=== PATIENT | female | born 1935 | race Caucasian/White ===

== ENCOUNTER 2016-06-30 12:47 | Emergency (ER) | payer OTHER ==
[~2016-06-30] VITALS: Ht 169.6 cm; Wt 56.7 kg
[~2016-06-30 12:47] MED LIST: ASPIRIN EC81 M1 PO; ATENOLOL25 M1 PO; FLUTICASONE PRO16 GM NASB; LEVOTHYROXINE88 MCG PO; MULTI-DAY VITA1 EACH PO; OMEPRAZOLE20 M2 PO; OMEPRAZOLE40 M1 PO; PROBIOTIC1 EACH PO; TYLENOL EXTRA500 M2 PO; VITAMIN D31000 UNI1 PO; VITAMIN D32000 UNI1 PO
--- NOTE | 2016-06-30 13:21 | ED GENERAL ADULT ---
History of Present Illness General Chief Complaint: Low Back Pain/Injury Stated Complaint: LOWER BACK PAIN, S/P FALL 06/26 Source: patient, family Exam Limitations: no limitations Vital Signs & Intake/Output Vital Signs & Intake/Output Vital Signs Date Time Temp Pulse Resp B/P B/P Pulse O2 O2 Flow FiO2 Mean Ox Delivery Rate 06/30 1630 98.0 69 15 135/74 100 Room Air 06/30 1502 97.4 65 18 146/72 98 Room Air 06/30 1253 97.8 71 18 153/89 100 Room Air Room Air 06/30/16 2 PM 81-year-old female presents to the emergency department for low back pain and pelvic pain. The patient states that she fell on June 26. She said that she was opening a door and her hand slipped and she fell backwards. She was seen and evaluated in urgent care center. She had x-rays which apparently showed a compression fracture. Today she called and said she was having ongoing pain and she was told to come to the emergency department for a CAT scan. She has a past medical history of compression fractures. She also has a past medical history of bilateral hip replacements. She denies any other injuries but she did say that she injured her left thumb. She has no pain in the left thumb at this time. She denies head injury or neck pain. She does have a past medical history of arthritis. She says that she has been prescribed Flexeril, prednisone and Tylenol. Currently she only has minimal pain. No abdominal pain , fever or other complaints. She does have a follow-up appointment with the orthopedist. (MITESH BARRIOS DO) Allergies Coded Allergies: oxycodone (INTENSE SCRATCHING 06/13/15) tramadol (From ULTRAM) (INTENSE SCRATCHING 06/13/15) Reconcile Medications Acetaminophen (Tylenol Extra Strength) 500 MG TABLET 1 TAB PO BID PAIN ( Reported) Atenolol 25 MG TABLET 1 TAB PO DAILY BP (Reported) Cholecalciferol (Vitamin D3) (Vitamin D3) 2,000 UNIT TABLET 1 TAB PO DAILY SUPPLEMENT (Reported) Fluticasone Propionate 16 GM SPRAY.SUSP 2 SPRAY NASB PRN ALLERGIES (Reported) Levothyroxine Sodium 88 MCG TABLET 1 TAB PO DAILY THYROID (Reported) Multivitamin (Multi-Day Vitamins) 1 EACH TABLET 1 TAB PO DAILY SUPPLEMENT ( Reported) Prednisone 20 MG TABLET 1 TAB PO DAILY BACK PAIN Triage Note: TRIAGE: 81 Y/O FEMALE PRESENTS C/O 10/03 LOWER BACK PAIN AND LOWER RIGHT BUTTOCK PAIN S/P FALL ON 06/26. PAIN RADIATES TO RIGHT POSTERIOR KNEE REGION. PATIETN REPORTS DIFFICULTY AMBULATING. Triage Nurses Notes Reviewed? yes HPI: The patient is ambulating without pain in the ED. She has no lower extremity weakness or numbness. No bowel or bladder dysfunction. The injury occurred several days ago. I did page the orthopedist. She will call Dr. Jhaveri's office tomorrow or return to the emergency department if worse. She was given prednisone 20 mg daily for 4 days, and will then resume her taper, continue that cyclobenzaprine and toes needed. Past History Travel History Traveled to [place] past 21 day No Medical History Any Pertinent Medical History? see below for history Neurological: NONE EENT: SEASONAL ALLERGIES Cardiovascular: hypertension Respiratory: NONE Gastrointestinal: NONE Hepatic: NONE Renal: NONE Musculoskeletal: OSTEOARTHRITIS Psychiatric: NONE Endocrine: THYROID DISORDER Blood Disorders: NONE Cancer(s): NONE NETWORK DEVELOPER/Reproductive: NONE History of MRSA: No History of VRE: No History of CDIFF: No Pneumonia Vaccine: 12/04/07 Surgical History Surgical History: non-contributory, TONSILECTOMY L HIP REPLACEMENT 1999 R HIP REPLACEMENT 2004 L WRIST FX REPAIR 2009 Psychosocial History Who do you live with Patient/Self Services at Home None What is your primary language Togolese Tobacco Use: Never used ETOH Use: occasional use Illicit Drug Use: denies illicit drug use Family History Family History, If Any: Relation not specified for: *No pertinent family history Hx Contributory? No Review of Systems Review of Systems Constitutional: Denies: fever. EENTM: Reports: no symptoms. Respiratory: Denies: short of breath. Cardiovascular: Denies: chest pain. GI: Denies: abdominal pain. Genitourinary: Reports: no symptoms. Musculoskeletal: Reports: back pain. Skin: Denies: rash. Neurological/Psychological: Denies: weakness. Hematologic/Endocrine: Denies: bruising, bleeding. Physical Exam Physical Exam General Appearance: well developed/nourished, alert, awake, anxious, mild distress Head: atraumatic, normal appearance Eyes: Bilateral: normal appearance, PERRL, EOMI. Ears, Nose, Throat: normal pharynx, normal ENT inspection, hearing grossly normal Neck: normal inspection, supple, full range of motion Respiratory: normal breath sounds, chest non-tender, no respiratory distress Cardiovascular: regular rate/rhythm Peripheral Pulses: 4+ radial (R) Gastrointestinal: soft, non-tender Back: normal range of motion, no vertebral tenderness, she points that the pain is at L5 Extremities: normal inspection, normal range of motion, no edema Neurologic/Psych: no motor/sensory deficits, awake, alert, oriented x 3 Skin: intact, normal color, warm/dry Core Measures ACS in differential dx? No CVA/TIA Diagnosis: No Severe Sepsis Present: No Septic Shock Present: No Progress Differential Diagnoses I considered the following diagnoses in my evaluation of the patient: [ Compression fracture, disc herniation, cauda equina syndrome, epidural hematoma pelvic fracture,] Plan of Care: Orders Procedure Date/time Status CT PELVIS WO IV CONTRAST 06/[address] LUMB SPINE WO IV CONTRAST 06/30 1342 Active Initial ED EKG: none Departure Departure Disposition: HOME OR SELF CARE Condition: Stable Clinical Impression Primary Impression: Lumbar compression fracture Referrals: KENNEDY RIBEIRO,SEFERINO Slaughter (PCP/Family) Departure Forms: Customer Survey General Discharge Information Prescriptions: Current Visit Scripts Prednisone 1 TAB PO DAILY #[address] scan results are shown below SERVICE DATE: 06/30/16 EXAM TYPE: CAT - CT LUMB SPINE WO IV CONTRAST EXAMINATION: CT LUMBAR SPINE WITHOUT CONTRAST CLINICAL INFORMATION: Fall. Pain. Evaluate for fracture. COMPARISON: Previous CT of the chest, abdomen and pelvis October 2015. TECHNIQUE: Helical non-contrast CT images were obtained through the lumbar spine and 1.25 and 2.5 mm axial reconstructions were reviewed along with sagittal and coronal MPRs. DLP: 339 mGy-cm FINDINGS: There is mild retrolisthesis of L2 with respect to L3. This is similar to previous exam. There is mild curvature of the proximal lumbar spine to the right. Bone alignment is otherwise normal. There is an old severe-appearing L1 vertebral body compression fracture that is unchanged. There is an acute-appearing severe L5 vertebral body compression fracture. There is mild posterior extension of the superior endplate into the spinal canal measuring approximately 4 mm. No other fracture is seen. At L1-L2, there is no disc herniation, protrusion or bulge. There is mild posterior extension of bone/superior endplate of L1 into the spinal canal measuring 3 mm. This is unchanged. At L2-L3, there is degenerative disc disease with disc space narrowing and vacuum change. There is mild diffuse bulge. No disc herniation is seen. At L3-L4, there is no disc herniation, protrusion or bulge. At L4-L5, there is mild diffuse disc bulge. There is mild secondary spinal stenosis due to disc, short pedicles, facet arthritis and ligamentum flavum thickening. At L5-S1, there is no disc herniation, protrusion or bulge. There is again an acute severe L5 compression fracture. There is mild retropulsion of the superior endplate of the L5 vertebral body into the spinal canal measuring 4 mm. There is mild spinal stenosis at L5-S1 due to short pedicles and facet arthritis and ligamentum flavum thickening. There is evidence of atherosclerotic disease. The abdominal aorta is normal in caliber. The gallbladder may be distended. . IMPRESSION: Acute severe L5 vertebral body compression fracture. There is 4 mm retropulsion of bone into the spinal canal. Stable severe L1 compression fracture. DICTATED BY: WILEY MANRIQUEZ MD DATE/TIME DICTATED:06/30/161520 RAG COLLECTOR:CHUCKY DATE/TIME TRANSCRIBED:06/30/161520 CONFIDENTIAL, DO NOT COPY WITHOUT APPROPRIATE AUTHORIZATION. <Electronically signed in Other Vendor System> SIGNED BY: WILEY MANRIQUEZ MD [id number] Critical Care Note Critical Care Note Critical Care Time: non-applicable
--- NOTE | 2016-06-30 15:40 | CT SCAN REPORT ---
EXAMINATION: CT LUMBAR SPINE WITHOUT CONTRAST CLINICAL INFORMATION: Fall. Pain. Evaluate for fracture. COMPARISON: Previous CT of the chest, abdomen and pelvis October 2015. TECHNIQUE: Helical non-contrast CT images were obtained through the lumbar spine and 1.25 and 2.5 mm axial reconstructions were reviewed along with sagittal and coronal MPRs. DLP: 339 mGy-cm FINDINGS: There is mild retrolisthesis of L2 with respect to L3. This is similar to previous exam. There is mild curvature of the proximal lumbar spine to the right. Bone alignment is otherwise normal. There is an old severe-appearing L1 vertebral body compression fracture that is unchanged. There is an acute-appearing severe L5 vertebral body compression fracture. There is mild posterior extension of the superior endplate into the spinal canal measuring approximately 4 mm. No other fracture is seen. At L1-L2, there is no disc herniation, protrusion or bulge. There is mild posterior extension of bone/superior endplate of L1 into the spinal canal measuring 3 mm. This is unchanged. At L2-L3, there is degenerative disc disease with disc space narrowing and vacuum change. There is mild diffuse bulge. No disc herniation is seen. At L3-L4, there is no disc herniation, protrusion or bulge. At L4-L5, there is mild diffuse disc bulge. There is mild secondary spinal stenosis due to disc, short pedicles, facet arthritis and ligamentum flavum thickening. At L5-S1, there is no disc herniation, protrusion or bulge. There is again an acute severe L5 compression fracture. There is mild retropulsion of the superior endplate of the L5 vertebral body into the spinal canal measuring 4 mm. There is mild spinal stenosis at L5-S1 due to short pedicles and facet arthritis and ligamentum flavum thickening. There is evidence of atherosclerotic disease. The abdominal aorta is normal in caliber. The gallbladder may be distended. . IMPRESSION: Acute severe L5 vertebral body compression fracture. There is 4 mm retropulsion of bone into the spinal canal. Stable severe L1 compression fracture.
--- NOTE | 2016-06-30 15:58 | CT SCAN REPORT ---
EXAMINATION: CT PELVIS WITHOUT CONTRAST CLINICAL INFORMATION: Pain post fall. Evaluate for fracture. COMPARISON: CT of the pelvis October 2015. TECHNIQUE: Helical scanning was performed with submillimeter collimation through the pelvis. Sagittal and coronal multiplanar 2-D reconstructions were obtained. DLP: 486 mGy-cm FINDINGS: The bones are osteopenic. Acute severe L5 vertebral body compression fracture is noted. No acute pelvic fracture is seen. There are old pubic ramus fractures. There are bilateral hip replacements. No fracture, dislocation or evidence of loosening is seen. There is stool in the colon. Evaluation of the soft tissues in the pelvis is limited due to artifact from hip replacements. Gallbladder may be distended. Soft tissues outside the pelvis are unremarkable. IMPRESSION: Osteopenia. No acute pelvic fracture is seen.
[2016-06-30] MEDS ORDERED: PREDNISONE20 M1 PO (16:20)
[2016-06-30 16:30] VITALS: BP 135/74
== END 2016-06-30 16:30 ==
LOC: ERH 12:47
DX: S32.059A Unspecified fracture of fifth lumbar vertebra, initial encounter for closed fracture (principal); S32.019A Unspecified fracture of first lumbar vertebra, initial encounter for closed fracture; W19.XXXA Unspecified fall, initial encounter; Y92.9 Unspecified place or not applicable; Y93.9 Activity, unspecified

== ENCOUNTER 2017-10-10 05:08 | Inpatient (IN) | payer OTHER ==
[~2017-10-10] VITALS: Ht 167.6 cm; Wt 57.2 kg
[~2017-10-10 05:08] MED LIST changes: +MULTI-DAY PLUS1 EAC1 PO; -MULTI-DAY VITA1 EACH PO; +NORCO 5-325 TA1 EACH PO; +PREDNISONE20 M1 PO; +TYLENOL WITH C1 EACH PO; +VICODIN 5-3001 EACH PO
[2017-10-10 06:00] LABS: ABSOLUTE BASOPHIL COUNT 0 /CUMM (0.0-0.2); ABSOLUTE EOSINOPHIL COUNT 0 /CUMM (0.0-0.7); ABSOLUTE GRANULOCYTE CT 9.5 /CUMM (1.4-6.5); ABSOLUTE MONOCYTE COUNT 0.8 /CUMM (0.10-0.60); BASOPHIL % 0.1 % (0.0-2.0); EOSINOPHIL % 0.3 % (0-5); HEMATOCRIT 42.6 % (37-47); MEAN CORPUSCULAR HGB CONC 33.6 G/DL (33.0-37.0); MEAN CORPUSCULAR VOLUME 95.2 FL (81.0-99.0); MEAN PLATELET VOLUME 8.4 FL (7.4-10.4); PLATELET COUNT 219 /CUMM (130-400); RED BLOOD CELL CT 4.47 /CUMM (4.20-5.40); WHITE BLOOD CELL COUNT 11.3 /CUMM (4.8-10.8)
[2017-10-10 06:01] LABS: GRANULOCYTE % 84.3 % (42.2-75.2)
--- NOTE | 2017-10-10 06:19 | ED GI/GU/ABDOMINAL COMPLAINT ---
History of Present Illness General Chief Complaint: Fall Stated Complaint: BIBA, FALL Source: patient, family, old records, EMS Exam Limitations: no limitations Vital Signs & Intake/Output Vital Signs & Intake/Output Vital Signs Date Time Temp Pulse Resp B/P B/P Pulse O2 O2 Flow FiO2 Mean Ox Delivery Rate 10/10 0723 97.0 83 20 111/60 98 Room Air 10/10 0511 97.9 78 20 117/60 99 Room Air Allergies Coded Allergies: oxycodone (INTENSE SCRATCHING 11/13/16) tramadol (From ULTRAM) (INTENSE SCRATCHING 11/13/16) Reconcile Medications Acetaminophen (Tylenol Extra Strength) 500 MG TABLET 1 TAB PO TID PAIN ( Reported) Atenolol 25 MG TABLET 1 TAB PO DAILY BP (Reported) Cholecalciferol (Vitamin D3) (Vitamin D3) 2,000 UNIT TABLET 1 TAB PO DAILY SUPPLEMENT (Reported) Fluticasone Propionate 16 GM SPRAY.SUSP 2 SPRAY NASB PRN ALLERGIES (Reported) Hydrocodone/Acetaminophen (Vicodin 5-300 MG Tablet) 5 MG-300 MG TABLET 2 TAB PO BID pain Hydrocodone/Acetaminophen ([place] 5-325 Tablet) 5 MG-325 MG TABLET 1 TAB PO Q4- 6 PRN PRN pain Levothyroxine Sodium 88 MCG TABLET 1 TAB PO DAILY THYROID (Reported) Multivitamin-Min/Iron/FA/Vit K (Multi-Day Plus Minerals Tablet) 18 MG IRON-400 MCG-25 MCG TABLET 1 TAB PO DAILY SUPPLEMENT (Reported) Prednisone 20 MG TABLET 2 TAB PO DAILY pain Tylenol With Codeine (Tylenol With Codeine #3 Tablet) 300 MG-30 MG TABLET 1 TAB PO TID PAIN (Reported) Triage Note: PT BIBA FROM HOME. PT STATES SHE HAS HX COLITIS AND HAS HAD DIARRHEA X1 WEEK "FEELS LIKE COLITIS", PT STATES SHE SAW DR ROQUE YESTERDAY AM AND WAS FEELING BETTER, THEN VOMITED LAST NIGHT AND BEGAN TO FEEL WEAK. PT STATES SHE WAS AMBUALTING TO BATHROOM EDGE INKER UPPERS AND WAS LOWERED TO GROUND BY FAMILY, DENIES HEADSTRIKE. DENIES ABD PAIN Triage Nurses Notes Reviewed? yes LMP (ages 10-50): post menopausal ? n Is pt currently ? No Onset: Last week Duration: day(s):, constant, continues in ED, getting worse Timing: recent history Quality/Severity: aching, mild Location: generalized abdomen Radiation: no radiation Activities at Onset: rest Prior Abdominal Problems: similar symptoms Past Sexual History: Unobtainable at this time Modifying Factors: Worsens With: eating. Associated Symptoms: abdominal pain, diarrhea, loss of appetite, nausea/vomiting HPI: 1 week prior to admission patient complains of abdominal cramps followed by frequent loose watery stools anorexia and fatigue. Prior to admission she had several episodes of frequent loose watery stools became weak and almost collapsed to the floor. She denies fever chills vomiting chest pain cough shortness of breath headache dysuria rash bleeding. Past History Travel History Traveled to [place] past 21 day No Medical History Any Pertinent Medical History? 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 No Review of Systems Review of Systems Constitutional: Reports: see HPI, malaise, weakness. EENTM: Reports: no symptoms. Respiratory: Reports: no symptoms. Cardiovascular: Reports: no symptoms. GI: Reports: see HPI, abdominal pain, diarrhea, nausea, vomiting. Genitourinary: Reports: no symptoms. Musculoskeletal: Reports: no symptoms. Skin: Reports: no symptoms. Neurological/Psychological: Reports: no symptoms. Hematologic/Endocrine: Reports: no symptoms. Immunologic/Allergic: Reports: no symptoms. All Other Systems: Reviewed and Negative Physical Exam Physical Exam General Appearance: well developed/nourished, alert, awake, anxious, moderate distress, thin Head: atraumatic, normal appearance Eyes: Bilateral: normal appearance, PERRL, EOMI, normal inspection. Ears, Nose, Throat, Mouth: hearing grossly normal, Dry mucous membranes Neck: normal inspection, supple, full range of motion, normal alignment Respiratory: normal breath sounds, chest non-tender, no respiratory distress, quiet respiration, lungs clear Cardiovascular: regular rate/rhythm, normal peripheral pulses, norml femoral pulses equa Peripheral Pulses: 4+ carotid (R), 4+ carotid (L) Gastrointestinal: soft, non-tender, no organomegaly, abnormal bowel sounds Back: normal inspection, normal range of motion Extremities: normal range of motion, no ligament instability Neurologic/Psych: no motor/sensory deficits, awake, alert, oriented x 3, normal gait Skin: intact, normal color, warm/dry Core Measures ACS in differential dx? No Sepsis Present: No Sepsis Focused Exam Completed? No Progress Differential Diagnosis: biliary colic, bowel obstruction, gastritis, inflamm bowel dis, pancreatitis Plan of Care: Orders Procedure Date/time Status Regular Diet 10/10 B Active Patient Data 10/10 0726 Active OXYGEN SETUP (GEN) 10/10 0725 Active Saline Lock 10/10 0725 Active Admit to inpatient 10/10 0725 Active Vital Signs 10/10 0725 Active Activity/Ambulation 10/10 0725 Active Code Status 10/10 0725 Active EKG 10/10 0724 Active LIPASE 10/10 0534 Complete COMPREHENSIVE METABOLIC PANEL 10/10 0534 Complete CBC WITHOUT DIFFERENTIAL 10/10 0534 Complete Laboratory Tests 10/10/17 0552: Anion Gap 10, Estimated GFR > 60, BUN/Creatinine Ratio 41.7 H, Glucose 127 H, Calcium 10.5 H, Total Bilirubin 0.9, AST 36, ALT 23, Alkaline Phosphatase 66, Total Protein 8.1, Albumin 4.4, Globulin 3.7, Albumin/Globulin Ratio 1.2, Lipase 175, CBC w Diff NO MAN DIFF REQ, RBC 4.47, MCV 95.2, MCH 32.0 H, MCHC 33.6, RDW 14.0, MPV 8.4, Gran % 84.3 H, Lymphocytes % 8.5 L, Monocytes % 6.8, Eosinophils % 0.3, Basophils % 0.1, Absolute Granulocytes 9.5 H, Absolute Lymphocytes 1.0 L, Absolute Monocytes 0.8 H, Absolute Eosinophils 0, Absolute Basophils 0 Diagnostic Imaging: Viewed by Me: CT Scan. Discussed w/RAD: CT Scan. Radiology Impression: No acute findings of the abdomen or pelvis. No inflammatory changes. Unchanged 0.4 cm right lower lobe pulmonary nodule suggesting benign etiology. Initial ED EKG: pending Departure Departure Disposition: STILL A PATIENT Condition: Stable Clinical Impression Primary Impression: Colitis Secondary Impressions: Dehydration Referrals: Richar RIBEIRO,Kaela Slaughter (PCP/Family) Departure Forms: Customer Survey General Discharge Information Admission Note Spoke With: Edy Rivas MD Documentation of Exam: Documentation of any treatments & extenuating circumstances including Concerns Regarding Discharge (functional status, medication knowledge or non-compliance, living conditions, etc.) that warrant an admission rather than observation: IV hydration medication adjustment GI evaluation physical therapy ensure safety continuing care discharge planning.
--- NOTE | 2017-10-10 07:00 | CT SCAN REPORT ---
EXAMINATION: CT ABDOMEN AND PELVIS WITH CONTRAST CLINICAL INFORMATION: History of colitis with frequent stooling. Weakness. COMPARISON: 06/13/[address] Lum[address] 06/30/2016 and 11/13/2016. TECHNIQUE: Multidetector volumetric imaging was performed of the abdomen and pelvis following IV administration of 95 mL of Optiray 320 intravenous contrast. Sagittal and coronal reformatted images were obtained on the technologist's workstation. DLP: 243 mGy-cm FINDINGS: LUNG BASES: Subsegmental atelectasis of the lung bases. 0.4 cm right lower lobe nodule, series 2 image 7. This is unchanged. LIVER, GALLBLADDER, AND BILIARY TREE: The liver is normal in size, shape, and attenuation. No focal hepatic lesion or biliary ductal dilatation is present. The gallbladder is unremarkable with no evidence of radiopaque gallstones, gallbladder wall thickening, or obvious pericholecystic inflammatory changes. PANCREAS: Unremarkable. SPLEEN: Unremarkable. ADRENAL GLANDS: Unremarkable. KIDNEYS AND URETERS: The kidneys are normal in size, shape, and attenuation. No hydronephrosis, hydroureter, or calculi seen. No perinephric stranding. Left upper pole renal cyst. BLADDER: Not well assessed due to artifact from hip arthroplasty hardware. GASTROINTESTINAL TRACT: The stomach is unremarkable. The small bowel is normal in caliber. There is no obstruction. Scattered fluid seen within the colon. No wall thickening or inflammation. No free air or free fluid. ABDOMINAL WALL: No significant hernia is appreciated. LYMPH NODES: Normal. VASCULAR: Normal caliber aorta. Mild atherosclerotic calcifications. PELVIC VISCERA: Not well evaluated due to artifact from hip arthroplasty hardware. OSSEOUS STRUCTURES: Bilateral total hip arthroplasties. Compression deformities of the L1 and L5 vertebral bodies. These are unchanged from the most recent prior lumbar spine CT. Vacuum disc phenomenon at the L2-L3 level. IMPRESSION: No acute findings of the abdomen or pelvis. No inflammatory changes. Unchanged 0.4 cm right lower lobe pulmonary nodule suggesting benign etiology.
[2017-10-10] MEDS ORDERED: TRAZODONE HCL50 M1 PO (07:57)
[2017-10-10] MEDS ORDERED: IMODIUM A-D2 M1 PO (07:58)
[2017-10-10] MEDS ORDERED: IPRATROPIUM BRO15 M1 NAS (08:01)
[2017-10-10] MEDS ORDERED: PEPTO BISMOL PO (08:02)
--- NOTE | 2017-10-10 09:11 | History & Physical ---
Sergio Paz 10/10/17 0911: General Information and HPI MD Statement: I have seen and personally examined TREVON PARRA and documented this H&P. The patient is a 82 year old F who presented with a patient stated chief complaint of [diarrhea,vomiting, abdominal pain]. Source of Information: patient, family Exam Limitations: no limitations History of Present Illness: This is a 82-year-old female with past medical history of hypertension, insomnia , hypothyroidism, depression came in with chief complain of nausea, multiple episodes of loose watery stools, vomiting and crampy abdominal pain since last 3 -4 days, however getting worse the night prior to admission. Apparently the patient had a couple of loose bowel movements in the last few days, the first one being one week prior to presentation after dinner after she had eaten chicken pie and a [place] when she had one episode of crampy abdominal pain and loose bowel movement which was self-limiting. Subsequently she was fine for the following 2 days, she had another loose bowel movement on the third day, followed by one more loose bowel movement and therefore she decided to see GI Dr. Huerta. She saw Dr. Huerta on the morning of the day prior to today's presentation, was feeling better when she again started to have crampy abdominal pain along with loose watery bowel movements around 2:30 AM. She said that it was pouring diarrhea and she kept sitting in the bathroom for a while, at least had 3-4 loose watery bowel movements, felt very weak and tired and because of weakness she went down as per her daughter's request so that she would not have a fall. She had mild crampy abdominal pain associated with the episodes. She also tried some orange juice in between and thrrew up all of it. She has had 2-3 episodes of vomiting, one episode even after coming to the emergency department. She does not recollect eating outside in last few days, no travel history, no recent antibiotic use, no sick contacts or anybody else sick with similar symptoms, no blood in the stools or mucus. She has had episodes of colitis in the past however nothing in the recent past. She notes that she has been eating some puddings which she had refrigerated from before. After recent few episodes she was mostly eating applesauce, some yogurt, oatmeal and was carefully watching what she eats. Allergies/Medications Allergies: Coded Allergies: oxycodone (INTENSE SCRATCHING 11/13/16) tramadol (From ULTRAM) (INTENSE SCRATCHING 11/13/16) Home Med list Atenolol 25 MG TABLET 1 TAB PO DAILY BP (Reported) Bismuth Subsalicylate (Pepto-Bismol) 262 MG TABLET 1 TAB PO DAILY PRN GI ( Reported) Cholecalciferol (Vitamin D3) (Vitamin D3) 2,000 UNIT TABLET 1 TAB PO DAILY SUPPLEMENT (Reported) Ipratropium [place] 42 MCG (0.06 %) SPRAY 2 SPRAY DARIO BID ALLERGIES (Reported ) Levothyroxine Sodium 88 MCG TABLET 1 TAB PO DAILY THYROID (Reported) Loperamide HCl (Imodium A-D) 2 MG TABLET 1 TAB PO DAILY PRN GI (Reported) Multivitamin-Min/Iron/FA/Vit K (Multi-Day Plus Minerals Tablet) 18 MG IRON-400 MCG-25 MCG TABLET 1 TAB PO DAILY SUPPLEMENT (Reported) Trazodone HCl 50 MG TABLET 1 TAB PO QPM SLEEP (Reported) Compliance With Home Meds: GOOD Past History Travel History Traveled to [place] past 21 day No Medical History Neurological: NONE EENT: SEASONAL ALLERGIES Cardiovascular: hypertension Respiratory: NONE Gastrointestinal: NONE Hepatic: NONE Renal: NONE Musculoskeletal: OSTEOARTHRITIS L WRIST FX/SX/HDWE Psychiatric: NONE Endocrine: THYROID DISORDER Blood Disorders: NONE Cancer(s): NONE [employer]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 Ambulation: independent IADLs Independent: shopping, housework, finances, food prep, telephone, transportation , medication admin. Sexual History Past Sexual History Unobtainable at this time Review of Systems Review of Systems Constitutional: Reports: malaise, weakness. Denies: chills, diaphoresis, fever. EENTM: Denies: no symptoms. Cardiovascular: Denies: no symptoms. Respiratory: Denies: no symptoms. GI: Reports: abdominal pain, diarrhea, nausea, changes in stool. Denies: bloating, constipation, distention, bowel incontinence, melena. Genitourinary: Reports: no symptoms. Musculoskeletal: Reports: no symptoms. Skin: Reports: no symptoms. Exam & Diagnostic Data Last 24 Hrs of Vital Signs/I&O Vital Signs Date Time Temp Pulse Resp B/P B/P Pulse O2 O2 Flow FiO2 Mean Ox Delivery Rate 10/10 09 97.4 70 20 115/53 96 Room Air 10/10 0723 97.0 83 20 111/60 98 Room Air 10/10 0511 97.9 78 20 117/60 99 Room Air Intake & Output 10/10 1600 10/10 0800 10/10 0000 Intake Total Output Total Balance Patient 55.338 kg kg Weight Weight Reported by Patient Measurement Method Physical Exam General Appearance Alert, Oriented X3, Cooperative, Mild Distress Skin No Rashes, No Breakdown Skin Temp/Moisture Exam: Warm/Dry Sepsis Skin Exam (color): Normal for Ethnicity HEENT Atraumatic, PERRLA, EOMI Neck Supple, No JVD Lymphatic no lymphadenopathy Cardiovascular Regular Rate, Normal S1, Normal S2, No Murmurs Lungs Clear to Auscultation, Normal Air Movement Abdomen Normal Bowel Sounds, Soft, No Tenderness Extremities No Clubbing, No Cyanosis, No Edema, Normal Pulses Last 24 Hrs of Labs/Anant: Laboratory Tests 10/10/17 0552: Anion Gap 10, Estimated GFR > 60, BUN/Creatinine Ratio 41.7 H, Glucose 127 H, Calcium 10.5 H, Magnesium 2.0, Total Bilirubin 0.9, AST 36, ALT 23, Alkaline Phosphatase 66, Total Protein 8.1, Albumin 4.4, Globulin 3.7, Albumin/Globulin Ratio 1.2, Lipase 175, Free T4 Pending, TSH &T3 &Free T4 Intrp 6.920 H, CBC w Diff NO MAN DIFF REQ, RBC 4.47, MCV 95.2, MCH 32.0 H, MCHC 33.6, RDW 14.0, MPV 8.4, Gran % 84.3 H, Lymphocytes % 8.5 L, Monocytes % 6.8, Eosinophils % 0.3, Basophils % 0.1, Absolute Granulocytes 9.5 H, Absolute Lymphocytes 1.0 L, Absolute Monocytes 0.8 H, Absolute Eosinophils 0, Absolute Basophils 0 Microbiology 08/17 0919 STOOL: Clostridium difficile Toxin A & B - ORD 10/10 918 STOOL: Stool Culture - ORD Diagnostic Data EKG Results Regular, rate of 82, normal sinus rhythm, right axis deviation, right bundle branch block, QTC of 449, similar to previous EKG, left posterior fascicular block, no acute ST-T wave changes. Other Results CT scan abdominal and pelvis did not show any acute findings of the abdomen or pelvis or any inflammatory changes, incidental finding of 0.4 cm right lower lobe pulmonary nodule Assessment/Plan Assessment: In summary, Ms Parra is a 82-year-old female with past medical history of hypertension, insomnia, hypothyroidism, depression came in with chief complain of nausea, multiple episodes of loose watery stools, vomiting and crampy abdominal pain since last 3-4 days, however getting worse the night prior to admission. ROS positive for nausea, weakness and dry mouth PE : AOx3, mild distress due to weakness. HEENT : johnny,no nodes RS : AEBE, no adventitious sounds CVS : s1, s2 +, no murmur PA : normal, soft, no tenderness Extremities : no clubbing, cyanosis Vitals tmax-97.9,pulse 83,b/p 111/60, 96% RA labs : White count 11.9, no bands,plt 219, na -136, k - 4.6, bun.cret - 25/0.6, glucose -127. ca - 10.2, mg - 2, protein normal, TSH elevated to 6.9, free t4 awaited. CT A/P - no acute findings, 4mm pulm nodule - RUL Assessment. Patient presented with multiple episodes of loose watery stools along with vomiting, seems to be very weak and dehydrated from multiple episodes. Given her age and weakness and for further determination of the cause of diarrhea we will admit her to general medicine floor. 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 She tried taking loperamide and bismuth sulfate, which initially controlled her diarrhea but not after that. One consideration can be given to administering a short dose of budesonide for microscopic colitis if infectious causes of colitis ruled out namely C. difficile, and stool cultures. She Will also need to be hydrated generously and electrolytes will need to be monitored. # 1 Diarrhea/vomiting/abdominal pain possibly secondary to flare of microscopic colitis/versus viral gastroenteritis versus C. difficile colitis. Continue to monitor vitals, continue IV hydration with D5 half-normal saline at 125 mL per hour, sent to for C. difficile along with PCR, send stool cultures, we will hold loperamide for now, GI consult Dr. Huerta has seen her one day prior to presentation, and the question is whether she needs to undergo colonoscopy at this point. Continue to monitor electrolytes and replete as necessary. Clear liquid diet for now, advance as tolerated. When necessary Zofran for nausea. #2 History of hypothyroidism. Microscopic colitis is usually associated with other autoantibodies, we will check TSH along with reflex thyroid hormones, continue levothyroxine at home dosage for now. #3 H/O Hypertension. Hold atenolol for now as the blood pressure is on the lower side, resume once stable. #4 History of insomnia. Continue trazodone every afternoon. Full Code. Pain pathway. DVT prophylaxis with Lovenox. As Ranked By This Provider Problem List: 1. Dehydration 2. Colitis Core Measures/Misc (11/10) Acute Coronary Syndrome ACS Diagnosis: No Congestive Heart Failure Congestive Heart Failure Diagnosis No Cerebrovascular Accident CVA/TIA Diagnosis: No VTE (View Protocol) VTE Risk Factors No risk factors No Mechanical VTE Prophylaxis d/t Other No VTE Pharm Prophylaxis d/t Other Sepsis (View protocol) Sepsis Present: No If YES complete Sepsis Event Note If YES complete Sepsis Event Note Resident Review Statement Resident Statement: admitted by resident Len Maxwell MD 10/10/17 1705: Core Measures/Misc (11/10) Sepsis (View protocol) If YES complete Sepsis Event Note If YES complete Sepsis Event Note Attending MD Review Statement Attending Statement Attending MD Statement: examined this patient, discuss w/resident/PA/[employer]ARD[employer] FINISHER, agreed w/resident/PA/HARDWOOD FINISHER, discussed with family, reviewed EMR data (avail), discussed with nursing, discussed with case mgmt, reviewed images, amended to note Attending Assessment/Plan: The patient is an 82 yo female with/o HTN, hypothyroidism, depression and h/o "collagenous colitis" who presented in the [facility] ED with c/o rather sudden onset of nausea/vomiting and persistent diarrhea. She had been taking Imodium at home. She had seen Dr. Vinnie Huerta in his office the day prior and was doing well, other than a few episodes of diarrhea. She endorsed eating a cheeseburger/ spinach and ?chicken pot pie on the day this occurred. She denied any fever chills or significant abdominal pain. Does note weakness/fatigue. She had no recent antibiotics. She denies any blood per rectum. In the ED she received IV Zofran/hydration and was feeling better at the time I saw her on the medical floor. Physical Exam: VS: T 98.3, P 62, R 20, BP 117/60, PO 99% RA HEENT: eyes- PERRLA, EOMI radha- slightly dry mucosa Neck: no adenopathy/bruits/JVD Chest: clear Cor: RRR nl S1, S2 w/o murm Abd: BS+, soft, NT Ext: no edema, pulses 2+ Neuro: alert & oriented x 3, non-focal exam Labs/Tests- as above Impression/Plan: #Acute Gastroenteritis- with nausea/vomiting and diarrhea. May be related to food borne illness vs viral. Has h/o "collagenous colitis", however no treatment. Plan: Admit to general medical service. IV hydration. GI consult (Dr. Flaherty covering for Dr. Huerta). Zofran for nausea. Check stool studies- C-diff, culture, etc. #Hypothyroidism- on Levothyroxine. TSH mildly elevated with normal Free T4. Plan: Will address with PCP and as OP make decision whether to increase dose of Levothyroxine. #HTN- BP has been stable on Atenolol. Plan: Continue Atenolol. #Depression/Sleep Disturbance- the patient requested low dose of Lorazepam while in hospital. Plan: Will give low dose Lorazepam this evening- patient advised should not take on a chronic basis and better as OP to remain with usual Trazodone.
[2017-10-10 10:35] VITALS: BP 100/60
[2017-10-10 13:46] VITALS: BP 122/70
--- NOTE | 2017-10-10 16:02 | Cons- Gastroenterology ---
General Information and HPI Consulting Request Date of Consult: 10/10/17 Requested By: Len Maxwell MD Reason for Consult: 1. Diarrhea 2. Nausea and Vomiting Source of Information: patient, Electronic Medical Records History of Present Illness: Ms. Colon is an 82-year-old female with a past medical history of collagenous colitis. She reports that she was diagnosed in 2003 but was not treated with any medications. She was merely told to eat "Kashi" cereal. She did well without further recurrence of episodes of diarrhea until 2012 when she was again diagnosed with collagenous colitis and again was not treated with any medications. She has had no symptoms until recently when she had several episodes of diarrhea for which she took Imodium with complete relief. She reports that when she has these episodes of diarrhea she has a normal formed stool which is then followed by watery stools. She was seen on 10/[address] Vinnie Huerta regarding concern that she had had a recurrence of collagenous colitis since she had had episodes of diarrhea within the past several days. He asked her to obtain stool samples and told her to start taking Pepto-Bismol. She went home and had a cheeseburger with spinach (she also mentioned to the housestaff that she ate a chicken pot pie) and was awakened in the middle of the night with nausea and vomiting and diarrhea which was persistent. She reports that it just "poured out of her" and she was unable to get off of the commode. Given fears of dehydration she went to the [place] ED and was admitted to the hospital. Since this morning she has had no further nausea vomiting or diarrhea. She denies abdominal pain. She had no blood in her bowel movements. She has had no hematemesis. She has had no fever or shaking chills. Her daughter is at the bedside. She has been able to tolerate a clear liquid diet without difficulty. Allergies/Medications Allergies: Coded Allergies: oxycodone (INTENSE SCRATCHING 11/13/16) tramadol (From ULTRAM) (INTENSE SCRATCHING 11/13/16) Home Med List: Atenolol 25 MG TABLET 1 TAB PO DAILY BP (Reported) Bismuth Subsalicylate (Pepto-Bismol) 262 MG TABLET 1 TAB PO DAILY PRN GI ( Reported) Cholecalciferol (Vitamin D3) (Vitamin D3) 2,000 UNIT TABLET 1 TAB PO DAILY SUPPLEMENT (Reported) Ipratropium [place] 42 MCG (0.06 %) SPRAY 2 SPRAY DARIO BID ALLERGIES (Reported ) Levothyroxine Sodium 88 MCG TABLET 1 TAB PO DAILY THYROID (Reported) Loperamide HCl (Imodium A-D) 2 MG TABLET 1 TAB PO DAILY PRN GI (Reported) Multivitamin-Min/Iron/FA/Vit K (Multi-Day Plus Minerals Tablet) 18 MG IRON-400 MCG-25 MCG TABLET 1 TAB PO DAILY SUPPLEMENT (Reported) Trazodone HCl 50 MG TABLET 1 TAB PO QPM SLEEP (Reported) Current Medications: Current Medications Sig/Shaq Start time Last Medication Dose Route Stop Time Status Admin Acetaminophen 650 MG Q6P PRN 10/10 914 AC PO Acetaminophen 1,000 MG Q6P PRN 10/10 0915 AC IV Acetaminophen 0 .STK-MED ONE 10/10 0559 DC IV Acetaminophen 1,000 MG ONCE ONE 10/10 0545 DC 10/10 IV 10/10 0546 0607 Cholecalciferol 2,000 IU DAILY 10/10 0930 AC 10/10 PO 1420 Dextrose/Sodium 1,000 ML Q8H 10/10 0930 AC 10/10 Chloride IV 10/11 0129 0932 Enoxaparin Sodium 40 MG DAILY 10/10 0915 AC 10/10 SC 1420 Levothyroxine Sodium 0.088 MG DAILY AC 10/10 0920 AC 10/10 PO 1421 Multivitamins 1 TAB DAILY 10/11 0900 AC PO Ondansetron HCl 0 .STK-MED ONE 10/10 0559 DC .ROUTE Ondansetron HCl 4 MG ONCE ONE 10/10 0445 DC 10/10 IV 10/10 0546 0607 Sodium Chloride 1,000 ML BOLUS ONE 10/10 0545 DC 10/10 IV 10/10 0644 0607 Trazodone HCl 50 MG QPM 10/10 2100 AC PO Past History Travel History Traveled to [place] past 21 day No Medical History Neurological: NONE EENT: SEASONAL ALLERGIES Cardiovascular: hypertension Respiratory: NONE Gastrointestinal: NONE Hepatic: NONE Renal: NONE Musculoskeletal: OSTEOARTHRITIS L WRIST FX/SX/HDWE Psychiatric: NONE Endocrine: THYROID DISORDER Blood Disorders: NONE Cancer(s): NONE PRODUCTION SUPV/Reproductive: NONE Surgical History Surgical History: non-contributory, TONSILECTOMY L HIP REPLACEMENT 1999 R HIP REPLACEMENT 2004 L WRIST FX REPAIR 2009 Family History Relations & Conditions If Any: Relation not specified for: *No pertinent family history Psychosocial History Services at Home: None Smoking Status: Former Smoker ETOH Use: occasional use Functional Ability ADLs Independent: dressing, eating, toileting, bathing. Ambulation: independent IADLs Independent: shopping, housework, finances, food prep, telephone, transportation , medication admin. Review of Systems Review of Systems Constitutional: Reports: weakness. Denies: chills, diaphoresis, fever, malaise. EENTM: Reports: no symptoms. Cardiovascular: Reports: no symptoms. Respiratory: Reports: no symptoms. GI: Reports: see HPI. Genitourinary: Reports: no symptoms. Musculoskeletal: Reports: no symptoms. Skin: Reports: no symptoms. Neurological/Psychological: Reports: no symptoms. Hematologic/Endocrine: Reports: no symptoms. Exam & Diagnostic Data Vital Signs and I&O Vital Signs Date Time Temp Pulse Resp B/P B/P Pulse O2 O2 Flow FiO2 Mean Ox Delivery Rate 10/10 1420 99 Room Air 10/10 1346 98.3 62 20 122/70 10/10 1035 98.6 77 20 100/60 99 Room Air 10/10 1012 97.6 72 20 110/60 98 Room Air 10/10 0900 97.4 70 20 115/53 96 Room Air 10/10 0723 97.0 83 20 111/60 98 Room Air 10/10 0511 97.9 78 20 117/60 99 Room Air Intake & Output 10/10 1600 10/10 0400 10/09 1600 10/09 0400 10/08 1600 10/08 0400 Intake Total 1462.5 Output Total 600 Balance 862.5 Intake, IV 1062.5 Intake, Oral 400 Output, Urine 600 Patient 122 lb Weight Weight Reported by Patient Measurement Method Physical Exam General Appearance: comfortable, thin Head: atraumatic, normal appearance Eyes: Bilateral: normal appearance. Ears, Nose, Throat: hearing grossly normal Neck: supple, full range of motion Respiratory: normal breath sounds, no respiratory distress, lungs clear Cardiovascular: regular rate/rhythm, Normal S1 and S2, without Rub, Murmur or Gallop. Gastrointestinal: normal bowel sounds, soft, non-tender, no organomegaly Extremities: no edema Neurologic/Psych: no motor/sensory deficits, awake, alert, oriented x 3, normal mood/affect Cranial Nerves: Cranial Nerves II-XII grossly intact Skin: intact, normal color, warm/dry Results Pertinent Lab Results: Laboratory Tests 10/10 0552 Chemistry Sodium (137 - 145 mmol/L) 136 L Potassium (3.5 - 5.1 mmol/L) 4.6 Chloride (98 - 107 mmol/L) 99 Carbon Dioxide (22 - 30 mmol/L) 27 Anion Gap (5 - 16) 10 BUN (7 - 17 mg/dL) 25 H Creatinine (0.5 - 1.0 mg/dL) 0.6 Estimated GFR (>60 ml/min) > 60 BUN/Creatinine Ratio (7 - 25 %) 41.7 H Glucose (65 - 99 mg/dL) 127 H Calcium (8.4 - 10.2 mg/dL) 10.5 H Magnesium (1.6 - 2.3 mg/dL) 2.0 Total Bilirubin (0.2 - 1.3 mg/dL) 0.9 AST (14 - 36 U/L) 36 ALT (9 - 52 U/L) 23 Alkaline Phosphatase (<127 U/L) 66 Total Protein (6.3 - 8.2 g/dL) 8.1 Albumin (3.5 - 5.0 g/dL) 4.4 Globulin (1.9 - 4.2 gm/dL) 3.7 Albumin/Globulin Ratio (1.1 - 2.2 %) 1.2 Lipase (23 - 300 U/L) 175 Free T4 (0.85 - 1.93 ng/dL) 1.76 Total T3 (0.97 - 1.69 ng/mL) 0.90 L TSH &T3 &Free T4 Intrp (0.270 - 4.20 uIU/mL) 6.920 H Hematology CBC w Diff NO MAN DIFF REQ WBC (4.8 - 10.8 /CUMM) 11.3 H RBC (4.20 - 5.40 /CUMM) 4.47 Hgb (12.0 - 16.0 G/DL) 14.3 Hct (37 - 47 %) 42.6 MCV (81.0 - 99.0 FL) 95.2 MCH (27.0 - 31.0 PG) 32.0 H MCHC (33.0 - 37.0 G/DL) 33.6 RDW (11.5 - 14.5 %) 14.0 Plt Count (130 - 400 /CUMM) 219 MPV (7.4 - 10.4 FL) 8.4 Gran % (42.2 - 75.2 %) 84.3 H Lymphocytes % (20.5 - 51.1 %) 8.5 L Monocytes % (1.7 - 9.3 %) 6.8 Eosinophils % (0 - 5 %) 0.3 Basophils % (0.0 - 2.0 %) 0.1 Absolute Granulocytes (1.4 - 6.5 /CUMM) 9.5 H Absolute Lymphocytes (1.2 - 3.4 /CUMM) 1.0 L Absolute Monocytes (0.10 - 0.60 /CUMM) 0.8 H Absolute Eosinophils (0.0 - 0.7 /CUMM) 0 Absolute Basophils (0.0 - 0.2 /CUMM) 0 Assessment/Plan Assessment/Recommendations: ASSESSMENT: 1. Nausea, Vomiting, Diarrhea -- ? food poisoning versus viral enteritis 2. Personal History of Collagenous Colitis -- ? diagnosis as patient reports was never treated with any medication, was told to eat a high fiber diet and remained asymptomatic for 9 years prior to having a second episode of limited diarrhea. Her second episode was treated in the same manner and she had no diarrhea prior to the second episode. RECOMMENDATIONS: 1. Advance diet as tolerated 2. Stool for C&S, C. Diff Toxin A&B, and lactoferrin 3. Continue IV fluids Consult Acknowledgment - Thank you for your consult request.
--- NOTE | 2017-10-10 17:19 | Admission Certification ---
Admission Certification Certification Statement - As attending physician, I certify that at the time of - admission, based on clinical presentation, severity of - symptoms, need for further diagnostic testing and - therapeutic interventions, and risk of adverse outcomes - without in-hospital treatment, in my clinical assessment, - this patient requires an acute hospital stay for a minimum - of two nights or longer. I have also considered psychsocial - factors such as support system, advanced age, financial - issues, cognitive issues, and failed out-patient treatments, - past re-admission history, safety of patient, and lack of - compliance as applicable. Specific rationale supporting this admission is: The patient presents with acute gastroenteritis symptoms with nausea/vomiting/ diarrhea. Has h/o collagenous colitis in past. Needs admission for IV fluids/ hydration, IV Zofran, check stool studies, GI consult.
[2017-10-10 22:38] VITALS: BP 116/60
[2017-10-11 05:52] VITALS: BP 110/62
--- NOTE | 2017-10-11 08:54 | PN- Housestaff ---
Aron Ma 10/11/17 0854: Subjective Follow-up For: Diarrhea Nausea and vomiting Subjective: I saw the patient today, she was lying back in her bed, alert and oriented x3, in no acute distress. She had multiple episodes of urination. She was unable to provide a sample of stool because of contamination with urine all the time. No report from the nurse regarding chest pain, lightheadedness, dizziness, fever , chills, sweating, or shortness of breath. Review of Systems Constitutional: Reports: see HPI. Objective Last 24 Hrs of Vital Signs/I&O Vital Signs Date Time Temp Pulse Resp B/P B/P Pulse O2 O2 Flow FiO2 Mean Ox Delivery Rate 10/11 1338 99.0 78 20 100/60 99 Room Air 10/11 0552 98.9 74 20 110/62 100 Room Air 10/10 2238 99.5 80 20 116/60 96 Room Air Intake & Output 10/11 1600 10/11 0800 10/11 0000 Intake Total 550 600 Output Total 200 203 Balance -200 550 397 Intake, IV 430 500 Intake, Oral 120 100 Number 1 Bowel Movements Output, Stool 3 Output, Urine 200 200 Patient 126 lb Weight Physical Exam General Appearance: Alert, Oriented X3, Cooperative, No Acute Distress Skin: No Rashes Skin Temp/Moisture Exam: Warm/Dry Sepsis Skin Exam (color): Normal for Ethnicity HEENT: Atraumatic Cardiovascular: Regular Rate, Normal S1, Normal S2 Lungs: Clear to Auscultation, Normal Air Movement Extremities: No Clubbing, No Cyanosis, No Edema, Normal Pulses, No Tenderness/ Swelling Assessment/Plan Assessment: Patient presented with multiple episodes of loose watery stools along with vomiting, seems to be very weak and dehydrated from multiple episodes. Given her age and weakness and for further determination of the cause of diarrhea we will admit her to general medicine floor. 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 She tried taking loperamide and bismuth sulfate, which initially controlled her diarrhea but not after that. One consideration can be given to administering a short dose of budesonide for microscopic colitis if infectious causes of colitis ruled out namely C. difficile, and stool cultures. She Will also need to be hydrated generously and electrolytes will need to be monitored. # 1 Diarrhea/vomiting/abdominal pain possibly secondary to flare of microscopic colitis/versus viral gastroenteritis versus C. difficile colitis. Continue to monitor vitals, continue IV hydration with D5 half-normal saline at 125 mL per hour, sent to for C. difficile along with PCR, send stool cultures, we will hold loperamide for now, GI consult Dr. Huerta has seen her one day prior to presentation, and the question is whether she needs to undergo colonoscopy at this point. Continue to monitor electrolytes and replete as necessary. Clear liquid diet for now, advance as tolerated. When necessary Zofran for nausea. She tolerated her diet, results for C. difficile and stool culture are pending. #2 History of hypothyroidism. Microscopic colitis is usually associated with other autoantibodies, we will check TSH along with reflex thyroid hormones, continue levothyroxine at home dosage for now. #3 H/O Hypertension. Hold atenolol for now as the blood pressure is on the lower side, resume once stable. #4 History of insomnia. Continue trazodone every afternoon. Full Code. Pain pathway. DVT prophylaxis with Lovenox. Problem List: 1. Dehydration 2. Colitis Pain Ratin Pain Location: Abdomen Pain Goal: Decrease Pain Plan: Acetaminophen Tomorrow's Labs & Rationales: As indicated Ana Laura Maxwell 10/11/17 1436: Attending MD Review Statement Attending Statement Attending MD Statement: examined this patient, discuss w/resident/PA/CYLINDER PRESS FEEDER, agreed w/resident/PA/CYLINDER PRESS FEEDER, discussed with family, reviewed EMR data (avail) Attending Assessment/Plan: Laboratory Tests 10/11/17 0905: Anion Gap 8, Estimated GFR > 60, BUN/Creatinine Ratio 10.0, Magnesium 1.8, CBC w Diff NO MAN DIFF REQ, RBC 3.44 L, MCV 95.1, MCH 32.3 H, MCHC 34.0, RDW 14.5, MPV 9.0, Gran % 62.3, Lymphocytes % 29.6, Monocytes % 5.7, Eosinophils % 2.3, Basophils % 0.1, Absolute Granulocytes 3.5, Absolute Lymphocytes 1.7, Absolute Monocytes 0.3, Absolute Eosinophils 0.1, Absolute Basophils 0 Vital Signs Date Time Temp Pulse Resp B/P B/P Pulse O2 O2 Flow FiO2 Mean Ox Delivery Rate 10/11 1338 99.0 78 20 100/60 99 Room Air 10/11 0552 98.9 74 20 110/62 100 Room Air 10/10 2238 99.5 80 20 116/60 96 Room Air Acute gastroenteritis- likely viral , improving. no more diarrhea. will advance her to regular diet and see how she does. pt will be watched overnight and possible dc tomorrow morning if doing ok. Hypokalemia- replaced po and recheck in am. d/w pt and pts family at bedside the care plan.
[2017-10-11 10:08] LABS: ABSOLUTE BASOPHIL COUNT 0 /CUMM (0.0-0.2); ABSOLUTE EOSINOPHIL COUNT 0.1 /CUMM (0.0-0.7); ABSOLUTE LYMPH COUNT 1.7 /CUMM (1.2-3.4); ABSOLUTE MONOCYTE COUNT 0.3 /CUMM (0.10-0.60); MEAN CORPUSCULAR HGB 32.3 PG (27.0-31.0)
[2017-10-11 11:17] LABS: ABSOLUTE GRANULOCYTE CT 3.5 /CUMM (1.4-6.5); BASOPHIL % 0.1 % (0.0-2.0); EOSINOPHIL % 2.3 % (0-5); GRANULOCYTE % 62.3 % (42.2-75.2); MEAN CORPUSCULAR VOLUME 95.1 FL (81.0-99.0); PLATELET COUNT 165 /CUMM (130-400); RBC DISTRIBUTION WIDTH 14.5 % (11.5-14.5); RED BLOOD CELL CT 3.44 /CUMM (4.20-5.40); WHITE BLOOD CELL COUNT 5.7 /CUMM (4.8-10.8)
[2017-10-11 11:20] LABS: HEMATOCRIT 32.7 % (37-47)
[2017-10-11 13:38] VITALS: BP 100/60
--- NOTE | 2017-10-11 17:34 | PN- Gastroenterology ---
Assessment/Plan GI Assessment/Recommendations: ASSESSMENT: 1. Nausea, Vomiting, Diarrhea -- None Further. 2. Personal History of Collagenous Colitis -- No diarrhea. 3. Hypokalemia RECOMMENDATIONS: 1. Patient stable for discharge 2. Will follow up with Dr. Huerta as an outpatient 3. Replete Potassium 4. GI will sign off. Please do not hesitate to contact us as needed. Subjective Subjective: Patient has tolerated diet. No further diarrhea. No bowel movement. No nausea or vomiting or abdominal pain. No light-headedness. Feels much better. Objective Vital Signs and I&Os Vital Signs Date Time Temp Pulse Resp B/P B/P Pulse O2 O2 Flow FiO2 Mean Ox Delivery Rate 10/11 1338 99.0 78 20 100/60 99 Room Air 10/11 0552 98.9 74 20 110/62 100 Room Air 10/10 2238 99.5 80 20 116/60 96 Room Air Intake & Output 10/11 1600 10/11 0400 10/10 1600 10/10 0400 10/09 1600 10/09 0400 Intake Total 315 247 9959.5 Output Total 200 203 600 Balance 350 397 862.5 Intake, IV 482 697 4578.5 Intake, Oral 120 100 400 Number 1 Bowel Movements Output, Stool 3 Output, Urine 200 200 600 Patient 126 lb 122 lb Weight Weight Reported by Patient Measurement Method Physical Exam General Appearance: well developed/nourished, no apparent distress, comfortable Head: atraumatic, normal appearance Respiratory: normal breath sounds, chest non-tender, lungs clear Abdomen: normal bowel sounds, soft, non-tender, no organomegaly Extremities: normal inspection, no edema Neurologic/Psychiatric: awake, alert, oriented x 3, normal mood/affect Skin: intact, normal color, warm/dry Current Medications: Current Medications Sig/Shaq Start time Last Medication Dose Route Stop Time Status Admin Acetaminophen 650 MG Q6P PRN 10/10 914 AC PO Acetaminophen 1,000 MG Q6P PRN 10/10 914 AC IV Cholecalciferol 2,000 IU DAILY 10/10 929 AC 10/11 PO 1013 Dextrose/Sodium 1,000 ML Q8H 10/10 929 DC 10/10 Chloride IV 10/11 0129 1951 Enoxaparin Sodium 40 MG DAILY 10/10 914 AC 10/11 SC 1013 Levothyroxine Sodium 0.088 MG DAILY AC 10/10 0920 AC 10/11 PO 0625 Lorazepam 0 .STK-MED ONE 10/11 0118 DC PO Lorazepam 0 .STK-MED ONE 10/107 DC PO Lorazepam 0.5 MG AT BEDTIME PRN 10/10 1645 AC 10/11 PO 10/17 1644 0118 Multivitamins 1 TAB DAILY 10/11 0900 AC 10/11 PO 1013 Potassium Chloride 40 MEQ ONCE ONE 10/11 1145 DC 10/11 PO 10/11 1146 1442 Trazodone HCl 50 MG QPM 10/10 2100 AC PO Results Pertinent Lab Results: Laboratory Tests 10/11 904 Chemistry Sodium (137 - 145 mmol/L) 134 L Potassium (3.5 - 5.1 mmol/L) 3.3 L Chloride (98 - 107 mmol/L) 102 Carbon Dioxide (22 - 30 mmol/L) 24 Anion Gap (5 - 16) 8 BUN (7 - 17 mg/dL) 6 L Creatinine (0.5 - 1.0 mg/dL) 0.6 Estimated GFR (>60 ml/min) > 60 BUN/Creatinine Ratio (7 - 25 %) 10.0 Magnesium (1.6 - 2.3 mg/dL) 1.8 Hematology CBC w Diff NO MAN DIFF REQ WBC (4.8 - 10.8 /CUMM) 5.7 RBC (4.20 - 5.40 /CUMM) 3.44 L Hgb (12.0 - 16.0 G/DL) 11.1 L Hct (37 - 47 %) 32.7 L MCV (81.0 - 99.0 FL) 95.1 MCH (27.0 - 31.0 PG) 32.3 H MCHC (33.0 - 37.0 G/DL) 34.0 RDW (11.5 - 14.5 %) 14.5 Plt Count (130 - 400 /CUMM) 165 MPV (7.4 - 10.4 FL) 9.0 Gran % (42.2 - 75.2 %) 62.3 Lymphocytes % (20.5 - 51.1 %) 29.6 Monocytes % (1.7 - 9.3 %) 5.7 Eosinophils % (0 - 5 %) 2.3 Basophils % (0.0 - 2.0 %) 0.1 Absolute Granulocytes (1.4 - 6.5 /CUMM) 3.5 Absolute Lymphocytes (1.2 - 3.4 /CUMM) 1.7 Absolute Monocytes (0.10 - 0.60 /CUMM) 0.3 Absolute Eosinophils (0.0 - 0.7 /CUMM) 0.1 Absolute Basophils (0.0 - 0.2 /CUMM) 0 10/10 0552 Chemistry Sodium (137 - 145 mmol/L) 136 L Potassium (3.5 - 5.1 mmol/L) 4.6 Chloride (98 - 107 mmol/L) 99 Carbon Dioxide (22 - 30 mmol/L) 27 Anion Gap (5 - 16) 10 BUN (7 - 17 mg/dL) 25 H Creatinine (0.5 - 1.0 mg/dL) 0.6 Estimated GFR (>60 ml/min) > 60 BUN/Creatinine Ratio (7 - 25 %) 41.7 H Glucose (65 - 99 mg/dL) 127 H Calcium (8.4 - 10.2 mg/dL) 10.5 H Magnesium (1.6 - 2.3 mg/dL) 2.0 Total Bilirubin (0.2 - 1.3 mg/dL) 0.9 AST (14 - 36 U/L) 36 ALT (9 - 52 U/L) 23 Alkaline Phosphatase (<127 U/L) 66 Total Protein (6.3 - 8.2 g/dL) 8.1 Albumin (3.5 - 5.0 g/dL) 4.4 Globulin (1.9 - 4.2 gm/dL) 3.7 Albumin/Globulin Ratio (1.1 - 2.2 %) 1.2 Lipase (23 - 300 U/L) 175 Free T4 (0.85 - 1.93 ng/dL) 1.76 Total T3 (0.97 - 1.69 ng/mL) 0.90 L TSH &T3 &Free T4 Intrp (0.270 - 4.20 uIU/mL) 6.920 H Hematology CBC w Diff NO MAN DIFF REQ WBC (4.8 - 10.8 /CUMM) 11.3 H RBC (4.20 - 5.40 /CUMM) 4.47 Hgb (12.0 - 16.0 G/DL) 14.3 Hct (37 - 47 %) 42.6 MCV (81.0 - 99.0 FL) 95.2 MCH (27.0 - 31.0 PG) 32.0 H MCHC (33.0 - 37.0 G/DL) 33.6 RDW (11.5 - 14.5 %) 14.0 Plt Count (130 - 400 /CUMM) 219 MPV (7.4 - 10.4 FL) 8.4 Gran % (42.2 - 75.2 %) 84.3 H Lymphocytes % (20.5 - 51.1 %) 8.5 L Monocytes % (1.7 - 9.3 %) 6.8 Eosinophils % (0 - 5 %) 0.3 Basophils % (0.0 - 2.0 %) 0.1 Absolute Granulocytes (1.4 - 6.5 /CUMM) 9.5 H Absolute Lymphocytes (1.2 - 3.4 /CUMM) 1.0 L Absolute Monocytes (0.10 - 0.60 /CUMM) 0.8 H Absolute Eosinophils (0.0 - 0.7 /CUMM) 0 Absolute Basophils (0.0 - 0.2 /CUMM) 0
[2017-10-11 21:59] VITALS: BP 124/80
[2017-10-12 06:44] VITALS: BP 140/90
--- NOTE | 2017-10-12 08:24 | PN- Housestaff ---
Aron Ma 10/12/17 0824: Subjective Follow-up For: Diarrhea Nausea and vomiting Subjective: I visited and examined the patient this morning, she was lying back in her bed, alert and oriented x3, in no acute distress. She was feeling bad because of some news from media. From last night she only had one episode of diarrhea. No tenderness, no nausea, no fever, no chills, no sweating. She denies chest pain, shortness of breath, lightheadedness, dizziness, headache , abdominal pain, dysuria, frequency. Review of Systems Constitutional: Reports: see HPI. Objective Last 24 Hrs of Vital Signs/I&O Vital Signs Date Time Temp Pulse Resp B/P B/P Pulse O2 O2 Flow FiO2 Mean Ox Delivery Rate 10/12 0644 97.6 60 20 140/90 96 Room Air 10/11 2159 98.4 69 20 124/80 98 Intake & Output 10/12 1600 10/12 0800 10/12 0000 Intake Total 100 480 Output Total Balance 100 480 Intake, IV 0 Intake, Oral 100 480 Number 0 Bowel Movements Physical Exam General Appearance: Alert, Oriented X3, Cooperative, No Acute Distress Skin: No Rashes, No Breakdown Skin Temp/Moisture Exam: Warm/Dry Sepsis Skin Exam (color): Normal for Ethnicity HEENT: Atraumatic Neck: Supple, No JVD Cardiovascular: Regular Rate, Normal S1, Normal S2 Lungs: Clear to Auscultation, Normal Air Movement Abdomen: Normal Bowel Sounds, Soft, No Tenderness Assessment/Plan Assessment: Patient presented with multiple episodes of loose watery stools along with vomiting, seems to be very weak and dehydrated from multiple episodes. Given her age and weakness and for further determination of the cause of diarrhea we will admit her to general medicine floor. 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 She tried taking loperamide and bismuth sulfate, which initially controlled her diarrhea but not after that. One consideration can be given to administering a short dose of budesonide for microscopic colitis if infectious causes of colitis ruled out namely C. difficile, and stool cultures. She Will also need to be hydrated generously and electrolytes will need to be monitored. # 1 Diarrhea/vomiting/abdominal pain possibly secondary viral gastroenteritis versus C. difficile colitis. Continue to monitor vitals, continue IV hydration with D5 half-normal saline at 125 mL per hour, sent to for C. difficile along with PCR, send stool cultures, we will hold loperamide for now, GI consult Dr. Huerta has seen her one day prior to presentation, and the question is whether she needs to undergo colonoscopy at this point. Continue to monitor electrolytes and replete as necessary. Clear liquid diet for now, advance as tolerated. When necessary Zofran for nausea. She tolerated her diet, results for C. difficile and stool culture are pending. #2 History of hypothyroidism. Microscopic colitis is usually associated with other autoantibodies, we will check TSH along with reflex thyroid hormones, continue levothyroxine at home dosage for now. #3 H/O Hypertension. Hold atenolol for now as the blood pressure is on the lower side, resume once stable. #4 History of insomnia. Continue trazodone every afternoon. Full Code. Pain pathway. DVT prophylaxis with Lovenox. Problem List: 1. Dehydration 2. Colitis Pain Ratin Pain Location: Not applicable Pain Goal: Remain pain free Pain Plan: Not applicable Tomorrow's Labs & Rationales: As indicated Ana Laura Maxwell 10/12/17 1549: Attending MD Review Statement Attending Statement Attending MD Statement: examined this patient, discuss w/resident/PA/VISITING NURSE, agreed w/resident/PA/VISITING NURSE, reviewed EMR data (avail) Attending Assessment/Plan: pts repeat cbc shows hb is stable. her diarrhea is resolved. likely viral gastroenteritis. d/w pt the care plan . dc home in stable condition. see dc summary for more details.
[2017-10-12 12:09] LABS: ABSOLUTE BASOPHIL COUNT 0 /CUMM (0.0-0.2); ABSOLUTE EOSINOPHIL COUNT 0.1 /CUMM (0.0-0.7); ABSOLUTE GRANULOCYTE CT 2.6 /CUMM (1.4-6.5); ABSOLUTE LYMPH COUNT 2.1 /CUMM (1.2-3.4); ABSOLUTE MONOCYTE COUNT 0.4 /CUMM (0.10-0.60); BASOPHIL % 0.4 % (0.0-2.0); EOSINOPHIL % 1.9 % (0-5); GRANULOCYTE % 49.6 % (42.2-75.2); HEMATOCRIT 34.6 % (37-47); MEAN CORPUSCULAR HGB 32.5 PG (27.0-31.0); MEAN CORPUSCULAR HGB CONC 34.2 G/DL (33.0-37.0); MEAN PLATELET VOLUME 8.7 FL (7.4-10.4); PLATELET COUNT 184 /CUMM (130-400); RBC DISTRIBUTION WIDTH 14.3 % (11.5-14.5); RED BLOOD CELL CT 3.64 /CUMM (4.20-5.40); WHITE BLOOD CELL COUNT 5.3 /CUMM (4.8-10.8)
[2017-10-12 14:22] VITALS: BP 140/80
--- NOTE | 2017-10-12 15:15 | Patient Discharge Instructions ---
Discharge Instructions General Discharge Information You were seen/treated for: Gastroenteritis Special Instructions: Follow up with the GI doctor and your primary care physician within 1 week of discharge Acute Coronary Syndrome Inclusion Criteria At DC or during hospital stay patient has or had the following: ACS DIAGNOSIS No Discharge Core Measures Meds if any: Prescribed or Continued at Discharge Meds if any: NOT Prescribed or Continued at Discharge Congestive Heart Failure Inclusion Criteria At DC or during hospital stay patient has or had the following: CHF DIAGNOSIS No Discharge Core Measures Meds if any: Prescribed or Continued at Discharge Meds if any: NOT Prescribed or Continued at Discharge Cerebrovascular accident Inclusion Criteria At DC or during hospital stay patient has or had the following: CVA/TIA Diagnosis No Discharge Core Measures Meds if any: Prescribed or Continued at Discharge Meds if any: NOT Prescribed or Continued at Discharge Venous thromboembolism Inclusion Criteria VTE Diagnosis No VTE Type NONE VTE Confirmed by (Test) NONE Discharge Core Measures - Per Current guidelines, there needs to be overlap - treatment for the first 5 days of Warfarin therapy. - If discharged on Warfarin prior to 5 days of - overlap therapy, the patient will need to be - assessed for post discharge needs including - *Post discharge parental anticoagulation - *Warfarin and/or parental anticoagulation education - *Follow up date to check INR post discharge At least 5 days overlap therapy as Inpatient No Meds if any: Prescribed or Continued at Discharge Note: Overlap Therapy is Warfarin and Anticoagulant Meds if any: NOT Prescribed or Continued at Discharge
== END 2017-10-12 16:45 | DRG 392 ==
LOC: ERH 05:08 → 2NA 07:25 → ERHI 07:25 → ENRESERV 09:26 → ENTRNSPT 10:12 → EDTRNSPT 10:14 → EDTRNSPTSTS 10:14 → 2NA 10:17 → CMPTRNSPT 10:35 → 2NA 13:28
PROVIDERS: Emergency Medicine; Internal Medicine
DX: A08.4 Viral intestinal infection, unspecified (principal); E86.0 Dehydration; I10 Essential (primary) hypertension; E03.9 Hypothyroidism, unspecified; F32.9 Major depressive disorder, single episode, unspecified; G47.00 Insomnia, unspecified; E87.6 Hypokalemia; Z88.5 Allergy status to narcotic agent; Z88.8 Allergy status to other drugs, medicaments and biological substances; Z87.81 Personal history of (healed) traumatic fracture; Z96.643 Presence of artificial hip joint, bilateral; Z87.19 Personal history of other diseases of the digestive system
CPT/HCPCS: 2NASP; 36415; 36592; 74177; 82436; 87015; 87045; 87899; 87899-59; 93005; 93010; 97116-GO; 97161-GP; J0131; J1650; J2405; J7042

== ENCOUNTER 2017-10-22 02:09 | Observation (INO) | payer OTHER ==
[~2017-10-22] VITALS: Ht 167.6 cm; Wt 56.7 kg
[~2017-10-22 02:09] MED LIST changes: +IMODIUM A-D2 M1 PO; +IPRATROPIUM BRO15 M1 NAS; +PEPTO BISMOL PO; +TRAZODONE HCL50 M1 PO
--- NOTE | 2017-10-22 02:50 | ED GI/GU/ABDOMINAL COMPLAINT ---
History of Present Illness General Chief Complaint: General Adult Stated Complaint: PT HERE TONIGHT C/O DIARRHEA/VOMITING HX OF SAME Source: patient, family Exam Limitations: no limitations Vital Signs & Intake/Output Vital Signs & Intake/Output Vital Signs Date Time Temp Pulse Resp B/P B/P Pulse O2 O2 Flow FiO2 Mean Ox Delivery Rate 10/22 0424 60 132/68 10/22 0240 Room Air 10/22 0229 96.5 78 18 106/60 100 Room Air Allergies Coded Allergies: oxycodone (INTENSE SCRATCHING 11/13/16) tramadol (From ULTRAM) (INTENSE SCRATCHING 11/13/16) Reconcile Medications Atenolol 25 MG TABLET 1 TAB PO DAILY BP (Reported) Bismuth Subsalicylate (Pepto-Bismol) 262 MG TABLET 1 TAB PO DAILY PRN GI ( Reported) Cholecalciferol (Vitamin D3) (Vitamin D3) 2,000 UNIT TABLET 1 TAB PO DAILY SUPPLEMENT (Reported) Ipratropium [place] 42 MCG (0.06 %) SPRAY 2 SPRAY DARIO BID ALLERGIES (Reported ) Levothyroxine Sodium 88 MCG TABLET 1 TAB PO DAILY THYROID (Reported) Loperamide HCl (Imodium A-D) 2 MG TABLET 1 TAB PO DAILY PRN GI (Reported) Multivitamin-Min/Iron/FA/Vit K (Multi-Day Plus Minerals Tablet) 18 MG IRON-400 MCG-25 MCG TABLET 1 TAB PO DAILY SUPPLEMENT (Reported) Trazodone HCl 50 MG TABLET 1 TAB PO QPM SLEEP (Reported) Triage Note: PATIENT PRESENTS TO THE ER ACCOMPANIED BY HER DAUGHTER. PT STATES THAT SHE WAS ADMITTED ON 09/30/17 WITH THE SAME SYMPTOMS SHE IS EXPERIENCING TONIGHT AND DIAGNOSED WITH GASTROENTERITIS. AFTER DISCHARGE FROM THE HOSPITAL, THE PATIENT FELT FINE, EVEN FELT FINE EARLIER TODAY AT HER FOLLOW UP APPOINTMENT AT HER PRIMARY CARE DOCTOR'S OFFICE. AFTER EATING DINNER TONEDA, THE PATIENT HAS BEEN VOMITING AND EXPERIENCING DIARRHEA. PATIENT STATES THAT SHE DOES NOT KNOW IF SHE IS RUNNING A TEMPERATURE OR NOT, BUT FELT HOT TO THE TOUCH SO SHE TOOK 500MG OF TYLENOL. PT IS UNSURE IF THE TYLENOL DID ANYTHING , BECAUSE SHE VOMITED SHORTLY AFTER TAKING THE TYLENOL AND FEARS IT MAY HAVE COME UP. PATIENT DENIES ANY PAIN. PATIENT'S DAUGHTER STATES THAT THE PATIENT IS VERY WEAK AND HAD TO COME DOWN THE STAIRS AND INTO THE CAR, WAS ABLE TO DO IT, BUT THE DAUGHTER IS AFRAID THAT THE PATIENT WILL NOT BE ABLE TO DO THE STAIRS WHEN THEY HAVE TO GO HOME BECAUSE OF THE PATIENT'S WEAKNESS. Triage Nurses Notes Reviewed? yes ? n Is pt currently ? No Onset: Gradual Duration: hour(s): Timing: recent history Location: generalized abdomen Radiation: no radiation Activities at Onset: none Prior Abdominal Problems: similar symptoms Modifying Factors: Worsens With: defecating, vomiting. Associated Symptoms: diarrhea, nausea/vomiting HPI: 82 yo woman recently discharged with gastroenteritis on 10/12, presents with 3 hours of profound nausea, vomiting, diarrhea. She reports two episodes of vomiting over the past 3 hours along with several episodes of diarrhea. She reports that she felt fine at her PMD's yesterday. Shortly after eating dinner, she experienced her sudden onset nausea, vomiting, diarrhea. She denies fever, chills, chest pain, shortness of breath. She notes profound weakness and difficulty ambulating. She is otherwise well. Past History Travel History Traveled to [place] past 21 day No Medical History Any Pertinent Medical History? see below for history Neurological: NONE EENT: SEASONAL ALLERGIES Cardiovascular: hypertension Respiratory: NONE Gastrointestinal: NONE Hepatic: NONE Renal: NONE Musculoskeletal: OSTEOARTHRITIS L WRIST FX/SX/HDWE Psychiatric: NONE Endocrine: THYROID DISORDER Blood Disorders: NONE Cancer(s): NONE RECYCLING TECH/Reproductive: NONE History of MRSA: No History of VRE: No History of CDIFF: No Surgical History Surgical History: non-contributory, TONSILECTOMY L HIP REPLACEMENT 2000 R HIP REPLACEMENT 2004 L WRIST FX REPAIR 2009 Psychosocial History Who do you live with Patient/Self Services at Home None What is your primary language Taiwanese Tobacco Use: Never used ETOH Use: denies use Family History Family History, If Any: Relation not specified for: *No pertinent family history Hx Contributory? No Review of Systems Review of Systems Constitutional: Reports: no symptoms. EENTM: Reports: no symptoms. Respiratory: Reports: no symptoms. Cardiovascular: Reports: no symptoms. GI: Reports: no symptoms. Genitourinary: Reports: no symptoms. Musculoskeletal: Reports: no symptoms. Skin: Reports: no symptoms. Neurological/Psychological: Reports: no symptoms. Hematologic/Endocrine: Reports: no symptoms. Immunologic/Allergic: Reports: no symptoms. All Other Systems: Reviewed and Negative Physical Exam Physical Exam General Appearance: well developed/nourished, mild distress Head: atraumatic, normal appearance Eyes: Bilateral: normal appearance. Ears, Nose, Throat, Mouth: hearing grossly normal, moist mucous membrane, dry mucosa Neck: normal inspection, supple, full range of motion Respiratory: normal breath sounds Cardiovascular: regular rate/rhythm Gastrointestinal: normal bowel sounds, soft, non-tender, no organomegaly Back: normal inspection, normal range of motion Extremities: normal range of motion Neurologic/Psych: no motor/sensory deficits, awake, alert, oriented x 3 Skin: poor skin turgor Core Measures ACS in differential dx? No Sepsis Present: No Sepsis Focused Exam Completed? No Progress Differential Diagnosis: viral syndrome vs c.diff vs other. Plan of Care: Orders Procedure Date/time Status CBC WITHOUT DIFFERENTIAL 10/23 06 Active BASIC ELECTROLYTES PLUS BUN&CR 10/23 06 Active Clear Liquid Diet 10/22 B Active PT Evaluate & Treat 10/22 044 Active Pathway - chart 10/22 044 Active House Staff 10/22 044 Active Patient Data 10/22 044 Active Code Status 10/22 0447 Active Patient Data 10/22 0429 Active Saline Lock 10/[address] in observation 10/22 0428 Active Misc Message 10/22 0428 Active ED Holding Orders 10/22 0428 Active Vital Signs 10/22 0428 Active Code Status 10/22 0428 Complete CULTURE,STOOL 10/22 0417 Active C.DIFFICILE 10/22 0417 Active URINALYSIS 10/22 0251 Complete TROPONIN LEVEL 10/22 0250 Complete LIPASE 10/22 0250 Complete LACTIC ACID 10/22 0250 Complete HEPATIC FUNCTION PANEL 10/22 0250 Complete CBC WITHOUT DIFFERENTIAL 10/22 0250 Complete BASIC METABOLIC PANEL 10/22 0250 Complete AMYLASE 10/22 0250 Complete EKG 10/22 0250 Active VTE Mechanical Prophylaxis 10/22 UNK Active Vital Signs 10/22 UNK Active MISTAKE 10/22 UNK Active Hemoccult 10/22 UNK Active Activity/Ambulation 10/22 UNK Active Current Medications Sig/Shaq Start time Last Medication Dose Stop Time Status Admin Trazodone HCl 50 MG QPM 10/22 2100 UNVr (Desyrel) Atenolol 25 MG DAILY 10/22 0900 UNVr (Tenormin) Cholecalciferol 1,000 IU DAILY 10/22 09 UNVr (Vitamin D) Levothyroxine Sodium 0.088 MG DAILY 10/22 899 UNVr (Synthroid) Multivitamins 1 TAB DAILY 10/22 899 UNVr (Theragran Vitamins) Heparin Sodium 5,000 UNIT Q8 10/22 06 UNVr (Porcine) Acetaminophen 650 MG Q6P PRN 10/22 0500 UNVr (Tylenol) Sodium Chloride 1,000 ML Q13H 10/22 0500 UNVr (Normal Saline 0.9%) 10/23 0659 Sodium Chloride 1,673.76 ML ONCE ONE 10/22 0315 UNir 10/22 (Normal Saline 0.9%) 10/22 0316 0333 Laboratory Tests 10/22/17 0333: Anion Gap 7, Estimated GFR > 60, BUN/Creatinine Ratio 27.1 H, Glucose 114 H, Lactic Acid 1.3, Calcium 10.4 H, Total Bilirubin 0.6, Direct Bilirubin 0.1, AST 25, ALT 39, Alkaline Phosphatase 70, Troponin I < 0.01, Total Protein 7.4, Albumin 4.1, Amylase 71, Lipase 228, CBC w Diff MAN DIFF ORDERED, RBC 4.49, MCV 95.8, MCH 31.9 H, MCHC 33.3, RDW 14.2, MPV 8.0, Gran % 90.6 H, Lymphocytes % 6.8 L, Monocytes % 2.1, Eosinophils % 0.5, Basophils % 0, Absolute Granulocytes 20.9 H, Segmented Neutrophils 80 H, Band Neutrophils 10 H, Absolute Lymphocytes 1.6, Lymphocytes 7 L, Monocytes 1 L, Absolute Monocytes 0.5, Eosinophils 2, Absolute Eosinophils 0.1, Absolute Basophils 0, Platelet Estimate ADEQUATE, Normocytic RBCs VERIFIED, Normochromic RBCs VERIFIED Microbiology 10/22 416 STOOL: Clostridium difficile Toxin A & B - ORD 10/22 416 STOOL: Stool Culture - ORD Diagnostic Imaging: Viewed by Me: CT Scan. Discussed w/RAD: CT Scan. Radiology Impression: PATIENT: TREVON SARAH PRESENT AGE: 82 PATIENT ACCOUNT NO: [id number] : 36 LOCATION: [facility] ORDERING PHYSICIAN: Matt West MD SERVICE DATE: 10/22/17 EXAM TYPE: CAT - CT ABD & PELVIS W/O IV CONTRAS EXAMINATION: CT ABDOMEN AND PELVIS WITHOUT CONTRAST CLINICAL INFORMATION: Severe diarrhea COMPARISON: 09/30/2017 TECHNIQUE: Multidetector volumetric imaging was performed from the superior aspect of the liver through the pubic symphysis. Sagittal and coronal reformatted images were obtained on the technologist's workstation. DLP: 235.97 mGy-cm FINDINGS: LUNG BASES: The visualized lung bases demonstrate minimal atelectasis. Stable right middle and lower lobe lung nodules. LIVER, GALLBLADDER, AND BILIARY TREE: The liver is normal in size, shape, and attenuation. No biliary ductal dilatation is present. The gallbladder is unremarkable with no evidence of radiopaque gallstones, gallbladder wall thickening, or obvious pericholecystic inflammatory changes. PANCREAS: Unremarkable. SPLEEN: Unremarkable. ADRENAL GLANDS: Unremarkable. KIDNEYS AND URETERS: The kidneys are normal in size, shape, and attenuation. Redemonstrated left upper pole renal cyst. No hydronephrosis, hydroureter, or calculi seen. No perinephric stranding. BLADDER: Unremarkable. GASTROINTESTINAL TRACT: There is mild colonic diverticulosis. Fluid is present throughout the colon, a finding which can be associated with diarrhea. No significant colonic wall thickening or pericolic inflammation is identified to suggest a colitis. No specific evidence of bowel obstruction. No free fluid or free air is seen. ABDOMINAL WALL: No significant hernia is appreciated. LYMPH NODES: No lymphadenopathy is seen, though assessment is limited in the absence of intravenous contrast. VASCULAR: There is atherosclerotic calcification along the aorta. PELVIC VISCERA: Not adequately assessed due to streak artifact from bilateral hip arthroplasties. OSSEOUS STRUCTURES: Bilateral hip arthroplasty hardware is partially visualized. There are healed fractures of the bilateral superior and inferior pubic rami. Redemonstrated compression deformities of L1 and L5. Redemonstrated grade 1 retrolisthesis of L2 on L3. IMPRESSION: 1. Fluid throughout the colon, a finding which can be associated with diarrhea. No evidence of colitis. 2. Chronic findings as described above. DICTATED BY: Cam Bynum MD DATE/TIME DICTATED:10/22/17337 GRANTS AND CONTRACTS ASSISTANT:CHUCKY DATE/TIME TRANSCRIBED:10/22/17337 CONFIDENTIAL, DO NOT COPY WITHOUT APPROPRIATE AUTHORIZATION. <Electronically signed in Other Vendor System> SIGNED BY: Cam Bynum MD 10/22/17 0351 Initial ED EKG: rbbb, lpfb, sinus, no acute changes Departure Departure Disposition: STILL A PATIENT Condition: Stable Clinical Impression Primary Impression: Diarrhea Secondary Impressions: Orthostasis Referrals: Richar RIBEIRO,Kaela Slaughter (PCP/Family) Departure Forms: Customer Survey General Discharge Information Observation Note Spoke With: Rakesh Valladares MD Place Patient In: Non-ED OBS Care Area Rationale for Observation: My rational for observation is as follows . pt with profound diarrhea and elevated wbc count and bun/cr ratio. pt also orthostatic requiring iv fluids. pt merits iv fluids, supportive care. check c.diff, stool culture
[2017-10-22 03:44] LABS: ABSOLUTE BASOPHIL COUNT 0 /CUMM (0.0-0.2); ABSOLUTE EOSINOPHIL COUNT 0.1 /CUMM (0.0-0.7); ABSOLUTE GRANULOCYTE CT 20.9 /CUMM (1.4-6.5); ABSOLUTE LYMPH COUNT 1.6 /CUMM (1.2-3.4); ABSOLUTE MONOCYTE COUNT 0.5 /CUMM (0.10-0.60); BASOPHIL % 0 % (0.0-2.0); EOSINOPHIL % 0.5 % (0-5); MEAN CORPUSCULAR HGB 31.9 PG (27.0-31.0); MEAN CORPUSCULAR HGB CONC 33.3 G/DL (33.0-37.0); MEAN CORPUSCULAR VOLUME 95.8 FL (81.0-99.0); PLATELET COUNT 297 /CUMM (130-400); RBC DISTRIBUTION WIDTH 14.2 % (11.5-14.5); RED BLOOD CELL CT 4.49 /CUMM (4.20-5.40); WHITE BLOOD CELL COUNT 23.1 /CUMM (4.8-10.8)
--- NOTE | 2017-10-22 03:52 | CT SCAN REPORT ---
EXAMINATION: CT ABDOMEN AND PELVIS WITHOUT CONTRAST CLINICAL INFORMATION: Severe diarrhea COMPARISON: 09/30/2017 TECHNIQUE: Multidetector volumetric imaging was performed from the superior aspect of the liver through the pubic symphysis. Sagittal and coronal reformatted images were obtained on the technologist's workstation. DLP: 235.97 mGy-cm FINDINGS: LUNG BASES: The visualized lung bases demonstrate minimal atelectasis. Stable right middle and lower lobe lung nodules. LIVER, GALLBLADDER, AND BILIARY TREE: The liver is normal in size, shape, and attenuation. No biliary ductal dilatation is present. The gallbladder is unremarkable with no evidence of radiopaque gallstones, gallbladder wall thickening, or obvious pericholecystic inflammatory changes. PANCREAS: Unremarkable. SPLEEN: Unremarkable. ADRENAL GLANDS: Unremarkable. KIDNEYS AND URETERS: The kidneys are normal in size, shape, and attenuation. Redemonstrated left upper pole renal cyst. No hydronephrosis, hydroureter, or calculi seen. No perinephric stranding. BLADDER: Unremarkable. GASTROINTESTINAL TRACT: There is mild colonic diverticulosis. Fluid is present throughout the colon, a finding which can be associated with diarrhea. No significant colonic wall thickening or pericolic inflammation is identified to suggest a colitis. No specific evidence of bowel obstruction. No free fluid or free air is seen. ABDOMINAL WALL: No significant hernia is appreciated. LYMPH NODES: No lymphadenopathy is seen, though assessment is limited in the absence of intravenous contrast. VASCULAR: There is atherosclerotic calcification along the aorta. PELVIC VISCERA: Not adequately assessed due to streak artifact from bilateral hip arthroplasties. OSSEOUS STRUCTURES: Bilateral hip arthroplasty hardware is partially visualized. There are healed fractures of the bilateral superior and inferior pubic rami. Redemonstrated compression deformities of L1 and L5. Redemonstrated grade 1 retrolisthesis of L2 on L3. IMPRESSION: 1. Fluid throughout the colon, a finding which can be associated with diarrhea. No evidence of colitis. 2. Chronic findings as described above.
[2017-10-22 04:09] LABS: GRANULOCYTE % 90.6 % (42.2-75.2)
--- NOTE | 2017-10-22 04:46 | History & Physical ---
General Information and HPI MD Statement: I have seen and personally examined TREVON SARAH and documented this H&P. The patient is a 82 year old F who presented with a patient stated chief complaint of DIARHEA Source of Information: patient Exam Limitations: no limitations History of Present Illness: This is a 82-year-old female with past medical history significant for hypertension, insomnia, hypothyroidism, diarrhea, collagenous colitis presented to the emergency department with chief complaint of nausea, vomiting, diarrhea since midnight. Patient was admitted to [facility] on October 10, 2017 for similar complaints. She was discharged on October 12, 2017 after treating for gastroenteritis. Patient reports that she has been doing completely fine after discharge. She was initially on low fiber diet and later advanced to solid diet with no complaints. She followed up with PCP ON 10/21/2017. However last night after dinner, all of a sudden she developed extreme nausea associated with 2 episodes of nonbloody nonbilious vomiting. She continueD to have 5-6 episodes of diarrhea after that. Stools were completely formed. No blood in stools. She denies any kind of abdominal pain. Of note she reportED that she ate a cheeseburger from local restaurant for her dinner. She was completely fine before dinner. Patient has history of collagenous colitis which was diagnosed in 2003. She received no medications for collagenous colitis. She was completely fine until 2012, found to have collagenous colitis again was never treated. 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 She has been following up Dr. Huerta since then. She takes Pepto-Bismol as needed. On review of systems she denies any recent travel history, fever, chills, chest pain, short of breath, cough, constipation, abdominal pain, sick contact exposure. She quit smoking in December 2016. She drinks alcohol socially. Denies illicit drug abuse Allergies/Medications Allergies: Coded Allergies: oxycodone (INTENSE SCRATCHING 11/13/16) tramadol (From ULTRAM) (INTENSE SCRATCHING 11/13/16) Home Med list Atenolol 25 MG TABLET 1 TAB PO DAILY BP (Reported) Bismuth Subsalicylate (Pepto-Bismol) 262 MG TABLET 1 TAB PO DAILY PRN GI ( Reported) Cholecalciferol (Vitamin D3) (Vitamin D3) 2,000 UNIT TABLET 1 TAB PO DAILY SUPPLEMENT (Reported) Ipratropium [place] 42 MCG (0.06 %) SPRAY 2 SPRAY DARIO BID ALLERGIES (Reported ) Levothyroxine Sodium 88 MCG TABLET 1 TAB PO DAILY THYROID (Reported) Loperamide HCl (Imodium A-D) 2 MG TABLET 1 TAB PO DAILY PRN GI (Reported) Multivitamin-Min/Iron/FA/Vit K (Multi-Day Plus Minerals Tablet) 18 MG IRON-400 MCG-25 MCG TABLET 1 TAB PO DAILY SUPPLEMENT (Reported) Trazodone HCl 50 MG TABLET 1 TAB PO QPM SLEEP (Reported) Compliance With Home Meds: GOOD Past History Travel History Traveled to [place] past 21 day No Medical History Neurological: NONE EENT: SEASONAL ALLERGIES Cardiovascular: hypertension Respiratory: NONE Gastrointestinal: NONE Hepatic: NONE Renal: NONE Musculoskeletal: OSTEOARTHRITIS L WRIST FX/SX/HDWE Psychiatric: NONE Endocrine: THYROID DISORDER Blood Disorders: NONE Cancer(s): NONE 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 Ambulation: independent IADLs Independent: shopping, housework, finances, food prep, telephone, transportation , medication admin. Review of Systems Review of Systems Constitutional: Denies: chills, diaphoresis, fever, malaise, weakness, unexplained weight loss. EENTM: Reports: ear pain. Denies: blurred vision, double vision. Cardiovascular: Denies: chest pain, edema, orthopena, palpitations, peripheral edema, syncope. Respiratory: Denies: cough, hemoptysis, orthopnea, short of breath, sputum production, stridor. GI: Reports: diarrhea, nausea, vomiting. Denies: abdominal pain, constipation. Genitourinary: Denies: discharge, dysuria, frequency. Musculoskeletal: Denies: gout, joint pain, joint swelling. Neurological/Psychological: Denies: anxiety, ataxia, cognitive dysfunction. Exam & Diagnostic Data Last 24 Hrs of Vital Signs/I&O Vital Signs Date Time Temp Pulse Resp B/P B/P Pulse O2 O2 Flow FiO2 Mean Ox Delivery Rate 10/22 0525 97.0 80 18 124/63 100 Room Air 10/22 0502 80 18 146/63 100 Room Air 10/22 0424 60 132/68 10/22 0240 Room Air 10/22 0229 96.5 78 18 106/60 100 Room Air Intake & Output 10/22 0800 10/22 0000 10/21 1600 Intake Total 1500 Output Total 50 Balance 1450 Intake, IV 1500 Number 1 Bowel Movements Output, Urine 50 Patient 55.792 kg Weight Weight Reported by Patient Measurement Method Physical Exam General Appearance Alert, Oriented X3, Cooperative, No Acute Distress Skin No Rashes, No Breakdown Skin Temp/Moisture Exam: Warm/Dry Sepsis Skin Exam (color): Normal for Ethnicity HEENT Atraumatic, PERRLA, EOMI, Mucous Membr. moist/pink Neck Supple, No JVD Lymphatic Cervical nl Cardiovascular Normal S1, Normal S2, No Murmurs Lungs Clear to Auscultation, Normal Air Movement Abdomen Normal Bowel Sounds, Soft, No Tenderness, No Hepatospenomegaly Extremities No Clubbing, No Cyanosis, No Edema, Normal Pulses Vascular Normal Pulses, Pulses Symmetrical Last 24 Hrs of Labs/Anant: Laboratory Tests 10/22/17 0459: Urine Color YEL, Urine Clarity CLEAR, Urine pH 6.0, Ur Specific [place] 1.010, Urine Protein NEG, Urine Ketones NEG, Urine Nitrite NEG, Urine Bilirubin NEG, Urine Urobilinogen 0.2, Ur Leukocyte Esterase NEG, Ur Microscopic EXAM NOT REQUIRED, Urine Hemoglobin NEG, Urine Glucose >=1000 H 10/22/17 0333: Anion Gap 7, Estimated GFR > 60, BUN/Creatinine Ratio 27.1 H, Glucose 114 H, Lactic Acid 1.3, Calcium 10.4 H, Total Bilirubin 0.6, Direct Bilirubin 0.1, AST 25, ALT 39, Alkaline Phosphatase 70, Troponin I < 0.01, Total Protein 7.4, Albumin 4.1, Amylase 71, Lipase 228, CBC w Diff MAN DIFF ORDERED, RBC 4.49, MCV 95.8, MCH 31.9 H, MCHC 33.3, RDW 14.2, MPV 8.0, Gran % 90.6 H, Lymphocytes % 6.8 L, Monocytes % 2.1, Eosinophils % 0.5, Basophils % 0, Absolute Granulocytes 20.9 H, Segmented Neutrophils 80 H, Band Neutrophils 10 H, Absolute Lymphocytes 1.6, Lymphocytes 7 L, Monocytes 1 L, Absolute Monocytes 0.5, Eosinophils 2, Absolute Eosinophils 0.1, Absolute Basophils 0, Platelet Estimate ADEQUATE, Normocytic RBCs VERIFIED, Normochromic RBCs VERIFIED Microbiology 10/22 416 STOOL: Clostridium difficile Toxin A & B - COLB 10/22 416 STOOL: Stool Culture - COLB Assessment/Plan Assessment: This is a 82-year-old female with past medical history significant for hypertension, insomnia, hypothyroidism, diarrhea, collagenous colitis presented to the emergency department with chief complaint of nausea, vomiting, diarrhea since midnight. Patient was admitted to [facility] on October 10, 2017 for similar complaints. She was discharged on October 12, 2017 after treating for gastroenteritis. Patient reports that she has been doing completely fine after discharge. She was initially on low fiber diet and later advanced to solid diet with no complaints. She followed up with PCP ON 10/21/2017. Vitals temperature 96, heart rate 70, respiratory rate 18, blood pressure 106/60 , saturating at 100 on room air labs WBC 23 with bandemia 10, platelets 297, hemoglobin 14, hematocrit 43 Sodium 143, potassium 3.9, BUN 19 and creatinine 0.7, glucose 114 Lactic acid 1.3 LFTs within normal limit Lipase normal CAT scan abdomen 1. Fluid throughout the colon, a finding which can be associated with diarrhea. No evidence of colitis. 1. Diarrhea/vomiting possibly secondary to flare of collagenous colitis versus viral gastroenteritis versus C. difficile colitis Patient presented with multiple episodes of diarrhea associated with vomiting. She denied any recent antibiotic use. Denied any recent travel history. She reported consumption of food outside for her dinner. She has no fever. She was found to have elevated WBC count 23,000 with bandemia. Most likely reactive leukocytosis secondary to diarrhea and vomiting. No source of other infection were found. CAT scan showed no evidence of colitis. * Observation in general medicine * Monitor vitals every shift * Monitor for fever * Follow-up WBC count * Follow-up stool cultures * Follow-up C. difficile * IV fluid * Clear liquid diet for now * IV Zofran for nausea * Hold loperamide for now * Gastroenterology consult in the a.m. Leukocytosis She was found to have WBC count 23,000 with bandemia 10. She denied any fever T -max was 96. No source of infection was found. Urine looks completely clear. CAT scan abdomen showed no evidence of colitis. She denied any respiratory or cardiac symptoms. * Looks like most likely reactive leukocytosis secondary to diarrhea * Follow-up WBC count * Monitor for fever * Follow-up stool cultures and C. difficile * Hold off antibiotics History of collagenous colitis Patient has history of collagenous colitis which was diagnosed in 2003. She was never treated for collagenous colitis. She was completely fine until 2012, found to have collagenous colitis again was never treated. 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 She has been following up Dr. Huerta since then. She takes Pepto-Bismol as needed. Hypertension continue atenolol 25 daily Hypothyroid continue levothyroxine 88 daily Insomnia continue trazodone at bedtime DVT prophylaxis subcu heparin Pain pathway Tylenol Full code Clear liquid diet As Ranked By This Provider Problem List: 1. Diarrhea Core Measures/Misc (11/10) Acute Coronary Syndrome ACS Diagnosis: No Congestive Heart Failure Congestive Heart Failure Diagnosis No Cerebrovascular Accident CVA/TIA Diagnosis: No VTE (View Protocol) VTE Risk Factors Acute Medical Illness No Mechanical VTE Prophylaxis d/t Medical Contraindication No VTE Pharm Prophylaxis d/t Medical Contraindication Sepsis (View protocol) Sepsis Present: No If YES complete Sepsis Event Note If YES complete Sepsis Event Note
--- NOTE | 2017-10-22 07:07 | PN- Housestaff ---
Hal Walker 10/22/17 0707: Subjective Follow-up For: Diarrhea Subjective: Pt seen and examined this AM. She reports improvement of symptoms. She did not have further episodes of vomiting but continued to have diarrhea, 2-3 episodes since her arrival. She is AAOx3, afebrile, though with dry mouth noted. Her VS are stable. She is breathing comfortably on room air. No abdominal pain/cramping , bloody stools. Review of Systems Constitutional: Reports: see HPI. Gastrointestinal: Reports: see HPI. Objective Last 24 Hrs of Vital Signs/I&O Vital Signs Date Time Temp Pulse Resp B/P B/P Pulse O2 O2 Flow FiO2 Mean Ox Delivery Rate 10/22 0525 97.0 80 18 124/63 100 Room Air 10/22 0502 80 18 146/63 100 Room Air 10/22 0424 60 132/68 10/22 0240 Room Air 10/22 0229 96.5 78 18 106/60 100 Room Air Intake & Output 10/22 0800 10/22 0000 10/21 1600 Intake Total 1500 Output Total 50 Balance 1450 Intake, IV 1500 Number 1 Bowel Movements Output, Urine 50 Patient 123 lb Weight Weight Reported by Patient Measurement Method Physical Exam General Appearance: Alert, Oriented X3, Cooperative, No Acute Distress HEENT: EOMI, dry mucous membranes Neck: Supple Cardiovascular: Regular Rate, Normal S1, Normal S2, No Murmurs Lungs: Clear to Auscultation, Normal Air Movement Abdomen: Normal Bowel Sounds, Soft, No Tenderness Current Medications: Current Medications Sig/Shaq Start time Last Medication Dose Route Stop Time Status Admin Acetaminophen 650 MG Q6P PRN 10/22 0500 AC PO Atenolol 25 MG DAILY 10/22 09 AC PO Cholecalciferol 1,000 IU DAILY 10/22 899 AC PO Heparin Sodium 5,000 UNIT Q8 10/22 06 AC 10/22 (Porcine) SC 0603 Heparin Sodium 0 .STK-MED ONE 10/22 0537 DC (Porcine) .ROUTE Levothyroxine Sodium 0.088 MG DAILY AC 10/22 0700 AC 10/22 PO 0603 Multivitamins 1 TAB DAILY 10/22 899 AC PO Ondansetron HCl 4 MG Q6P PRN 10/22 06 AC IV Sodium Chloride 1,000 ML Q13H 10/22 0500 AC 10/22 IV 10/23 0659 0532 Sodium Chloride 1,673.76 ML ONCE ONE 10/22 0315 DC 10/22 IV 10/226 0333 Trazodone HCl 50 MG QPM 10/22 2100 AC PO Last 24 Hrs of Lab/Anant Results Last 24 Hrs of Labs/Mics: Laboratory Tests 10/22/17 0550: Lactic Acid Cancelled 10/22/17 0459: Urine Color YEL, Urine Clarity CLEAR, Urine pH 6.0, Ur Specific [place] 1.010, Urine Protein NEG, Urine Ketones NEG, Urine Nitrite NEG, Urine Bilirubin NEG, Urine Urobilinogen 0.2, Ur Leukocyte Esterase NEG, Ur Microscopic EXAM NOT REQUIRED, Urine Hemoglobin NEG, Urine Glucose >=1000 H 10/22/17 0333: Anion Gap 7, Estimated GFR > 60, BUN/Creatinine Ratio 27.1 H, Glucose 114 H, Lactic Acid 1.3, Calcium 10.4 H, Total Bilirubin 0.6, Direct Bilirubin 0.1, AST 25, ALT 39, Alkaline Phosphatase 70, Troponin I < 0.01, Total Protein 7.4, Albumin 4.1, Amylase 71, Lipase 228, CBC w Diff MAN DIFF ORDERED, RBC 4.49, MCV 95.8, MCH 31.9 H, MCHC 33.3, RDW 14.2, MPV 8.0, Gran % 90.6 H, Lymphocytes % 6.8 L, Monocytes % 2.1, Eosinophils % 0.5, Basophils % 0, Absolute Granulocytes 20.9 H, Segmented Neutrophils 80 H, Band Neutrophils 10 H, Absolute Lymphocytes 1.6, Lymphocytes 7 L, Monocytes 1 L, Absolute Monocytes 0.5, Eosinophils 2, Absolute Eosinophils 0.1, Absolute Basophils 0, Platelet Estimate ADEQUATE, Normocytic RBCs VERIFIED, Normochromic RBCs VERIFIED Microbiology 10/23 603 STOOL: Clostridium difficile Toxin A & B - RECD 10/23 603 STOOL: Stool Culture - RECD Assessment/Plan Assessment: Ms. Parra is a 82-year-old F with PMH significant for hypertension, insomnia, hypothyroidism, diarrhea requiring admission on 10/10 and collagenous colitis who presented to the emergency department with c/o nausea, vomiting, diarrhea since midnight. Pt states she was fine after discharge, with resolution of the symptoms that prompted her initial admission, advanced her diet as directed and followed up with her PCP on 10/21 with symptoms controlled. Yesterday night right after eating a cheeseburger, she developed N/V and diarrhea. On the ED she was given fluids, CT abdomen not showing evidence of colitis, but still c/o same symptoms. She was being followed by Dr. Huerta. She is admitted for management of these issues: ASSESSMENT: #Diarrhea/Vomiting #Leukocytosis #H/o collagenous collitis #H/o HTN/Hypothyroidism/Insomnia #Diarrhea/Vomiting, unclear etiology; viral gastreoenteritis vs collagenous colitis flare-up, vs c diff colitis. Of unclear etiology for the moment. She had a similar presentation on 10/10, with resolution of symptoms upon discharge. Last admission, her workup was negative for c-diff. We have sent stool cultures and c diff toxins. She has been getting fluids, symptoms are improving from momenet of admission. CT did not show evidence of colitis. GI was consulted. -f/u stool cultures, c diff toxins -f/u GI recommendations #Leukocytosis Leukocytosis of 23 with 10% bands. No fevers documented or felt by the patient. No other source for leukocytosis seen rather than GI (No findings on UA). Likely reactionary as no inflammation was seen on CT abd. No need for Abx at this time. Will continue to monitor. -Off abx -Trend WBC #H/o collagenous collitis. Present episode could indicate a flare-up. She was diagnosed in 2004 though never really received any treatment. 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 Huerta. #H/o HTN/Hypothyroidism/Insomnia HTN: BP has been normal. Will continue her antihypertensive home medications. Hypothyroidism: We will continue levothyroxine. Insomnia: We will continue trazodone. FULL CODE CLEAR LIQUID DIET DVT PPX Hep subq Problem List: 1. Diarrhea 2. Dehydration Pain Ratin Pain Location: n/a Pain Goal: Remain pain free Pain Plan: as per pathway Tomorrow's Labs & Rationales: cbc, bep Len Maxwell MD 10/22/172126: Attending Review Statement Attending Statement Attending Statement: examined this patient, discuss w/resident/PA/DOUBLE END TENONER OPERATOR, agreed w/resident/PA/DOUBLE END TENONER OPERATOR, reviewed EMR data (avail), reviewed images, amended to note Attending Assessment/Plan: The patient was seen and discussed with house staff. Agree with plan of care as outlined. Appreciate GI input from Dr. Huerta. Follow-up WBC and await stool testing. Possible sigmoidoscopy.
[2017-10-22 14:23] VITALS: BP 101/60
--- NOTE | 2017-10-22 14:55 | Cons- Gastroenterology ---
General Information and HPI Consulting Request Date of Consult: 10/22/17 Requested By: Rakesh Valladares MD Reason for Consult: Acute diarrhea, vomiting, leukocytosis Allergies/Medications Allergies: Coded Allergies: oxycodone (INTENSE SCRATCHING 11/13/16) tramadol (From ULTRAM) (INTENSE SCRATCHING 11/13/16) Home Med List: Atenolol 25 MG TABLET 1 TAB PO DAILY BP (Reported) Bismuth Subsalicylate (Pepto-Bismol) 262 MG TABLET 1 TAB PO DAILY PRN GI ( Reported) Cholecalciferol (Vitamin D3) (Vitamin D3) 2,000 UNIT TABLET 1 TAB PO DAILY SUPPLEMENT (Reported) Ipratropium [place] 42 MCG (0.06 %) SPRAY 2 SPRAY DARIO BID ALLERGIES (Reported ) Levothyroxine Sodium 88 MCG TABLET 1 TAB PO DAILY THYROID (Reported) Loperamide HCl (Imodium A-D) 2 MG TABLET 1 TAB PO DAILY PRN GI (Reported) Multivitamin-Min/Iron/FA/Vit K (Multi-Day Plus Minerals Tablet) 18 MG IRON-400 MCG-25 MCG TABLET 1 TAB PO DAILY SUPPLEMENT (Reported) Trazodone HCl 50 MG TABLET 1 TAB PO QPM SLEEP (Reported) Current Medications: Current Medications Sig/Shaq Start time Last Medication Dose Route Stop Time Status Admin Acetaminophen 650 MG Q6P PRN 10/22 0500 AC PO Atenolol 25 MG DAILY 10/22 0900 AC 10/22 PO 0812 Cholecalciferol 1,000 IU DAILY 10/22 0900 AC 10/22 PO 0812 Heparin Sodium 5,000 UNIT Q8 10/22 0600 AC 10/22 (Porcine) SC 1424 Heparin Sodium 0 .STK-MED ONE 10/22 0537 DC (Porcine) .ROUTE Levothyroxine Sodium 0.088 MG DAILY AC 10/22 0700 AC 10/22 PO 0603 Multivitamins 1 TAB DAILY 10/22 0900 AC 10/22 PO 0812 Ondansetron HCl 4 MG Q6P PRN 10/22 0600 AC IV Sodium Chloride 1,000 ML Q13H 10/22 0500 AC 10/22 IV 10/23 0659 0532 Sodium Chloride 1,673.76 ML ONCE ONE 10/22 0315 DC 10/22 IV 10/22 0316 0333 Trazodone HCl 50 MG QPM 10/22 2100 AC PO Past History Travel History Traveled to [place] past 21 day No Medical History Blood Transfusion Hx: No Neurological: NONE EENT: SEASONAL ALLERGIES Cardiovascular: hypertension Respiratory: NONE Gastrointestinal: NONE Hepatic: NONE Renal: NONE Musculoskeletal: OSTEOARTHRITIS L WRIST FX/SX/HDWE Psychiatric: NONE Endocrine: THYROID DISORDER Blood Disorders: NONE Cancer(s): NONE APPLICATIONS TESTER/Reproductive: NONE Surgical History Surgical History: non-contributory, TONSILECTOMY L HIP REPLACEMENT 1999 R HIP REPLACEMENT 2004 L WRIST FX REPAIR 2009 Family History Relations & Conditions If Any: Relation not specified for: *No pertinent family history Psychosocial History Services at Home: None Smoking Status: Former Smoker ETOH Use: denies use Illicit Drug Use: denies illicit drug use Functional Ability ADLs Independent: dressing, eating, toileting, bathing. Ambulation: independent IADLs Independent: shopping, housework, finances, food prep, telephone, transportation , medication admin. Exam & Diagnostic Data Vital Signs and I&O Vital Signs Date Time Temp Pulse Resp B/P B/P Pulse O2 O2 Flow FiO2 Mean Ox Delivery Rate 10/22 1423 97.5 61 18 101/60 100 Room Air 10/22 1256 98.2 78 20 119/61 99 Room Air 10/22 0812 97.5 75 16 135/78 10/22 0728 97.5 75 16 110/60 100 Room Air 10/22 0525 97.0 80 18 124/63 100 Room Air 10/22 0502 80 18 146/63 100 Room Air 10/22 0424 60 132/68 10/22 0240 Room Air 10/22 0229 96.5 78 18 106/60 100 Room Air Intake & Output 10/22 1600 10/22 0400 10/21 1600 10/21 0400 10/20 1600 10/20 0400 Intake Total 1875 Output Total 250 Balance 1625 Intake, IV 1575 Intake, Oral 300 Number 6 Bowel Movements Output, Urine 250 Patient 123 lb 123 lb Weight Weight Reported by Patient Measurement Method Physical Exam: Abdomen benign Results Pertinent Lab Results: Laboratory Tests 10/22 10/22 10/22 0550 0459 0417 Chemistry Lactic Acid Cancelled Serology C. difficile Tox B Gene Pending Urines Urine Color (YEL,AMB,STR) YEL Urine Clarity (CLEAR) CLEAR Urine pH (5.0 - 8.0) 6.0 Ur Specific [place] (1.001 - 1.035) 1.010 Urine Protein (NEG,<30 MG/DL) NEG Urine Ketones (NEG) NEG Urine Nitrite (NEG) NEG Urine Bilirubin (NEG) NEG Urine Urobilinogen (0.1 - 1.0 EU/dl) 0.2 Ur Leukocyte Esterase (NEG) NEG Ur Microscopic EXAM NOT REQUIRED Urine Hemoglobin (NEG) NEG Urine Glucose (N MG/DL) >=1000 H 10/22 0333 Chemistry Sodium (137 - 145 mmol/L) 136 L Potassium (3.5 - 5.1 mmol/L) 3.9 Chloride (98 - 107 mmol/L) 100 Carbon Dioxide (22 - 30 mmol/L) 29 Anion Gap (5 - 16) 7 BUN (7 - 17 mg/dL) 19 H Creatinine (0.5 - 1.0 mg/dL) 0.7 Estimated GFR (>60 ml/min) > 60 BUN/Creatinine Ratio (7 - 25 %) 27.1 H Glucose (65 - 99 mg/dL) 114 H Lactic Acid (0.7 - 2.1 mmol/L) 1.3 Calcium (8.4 - 10.2 mg/dL) 10.4 H Total Bilirubin (0.2 - 1.3 mg/dL) 0.6 Direct Bilirubin (< 0.4 mg/dL) 0.1 AST (14 - 36 U/L) 25 ALT (9 - 52 U/L) 39 Alkaline Phosphatase (<127 U/L) 70 Troponin I (< 0.11 ng/ml) < 0.01 Total Protein (6.3 - 8.2 g/dL) 7.4 Albumin (3.5 - 5.0 g/dL) 4.1 Amylase (30 - 110 U/L) 71 Lipase (23 - 300 U/L) 228 Hematology CBC w Diff MAN DIFF ORDERED WBC (4.8 - 10.8 /CUMM) 23.1 H RBC (4.20 - 5.40 /CUMM) 4.49 Hgb (12.0 - 16.0 G/DL) 14.3 Hct (37 - 47 %) 43.0 MCV (81.0 - 99.0 FL) 95.8 MCH (27.0 - 31.0 PG) 31.9 H MCHC (33.0 - 37.0 G/DL) 33.3 RDW (11.5 - 14.5 %) 14.2 Plt Count (130 - 400 /CUMM) 297 MPV (7.4 - 10.4 FL) 8.0 Gran % (42.2 - 75.2 %) 90.6 H Lymphocytes % (20.5 - 51.1 %) 6.8 L Monocytes % (1.7 - 9.3 %) 2.1 Eosinophils % (0 - 5 %) 0.5 Basophils % (0.0 - 2.0 %) 0 Absolute Granulocytes (1.4 - 6.5 /CUMM) 20.9 H Segmented Neutrophils (42.2 - 75.2 %) 80 H Band Neutrophils (0.0 - 5.0 %) 10 H Absolute Lymphocytes (1.2 - 3.4 /CUMM) 1.6 Lymphocytes (20.5 - 51.1 %) 7 L Monocytes (1.7 - 9.3 %) 1 L Absolute Monocytes (0.10 - 0.60 /CUMM) 0.5 Eosinophils (0 - 5.0 %) 2 Absolute Eosinophils (0.0 - 0.7 /CUMM) 0.1 Absolute Basophils (0.0 - 0.2 /CUMM) 0 Platelet Estimate (ADEQUATE) ADEQUATE Normocytic RBCs VERIFIED Normochromic RBCs VERIFIED Imaging/Other Studies: CT scan unrevealing Stool C. difficile toxin negative, culture pending Assessment/Plan Assessment/Recommendations: Recurrent/acute diarrhea with vomiting/painless. Now with leukocytosis, but unrevealing CT scan. Recent admission with negative stool culture and C. difficile toxin. Appears well today. Still having loose stools. Recommendations * Await stool culture results * Repeat CBC in the morning * Continue clear liquid diet * Consideration for flexible sigmoidoscopy * Consideration for budesonide therapy, pending above Consult Acknowledgment - Thank you for your consult request.
[2017-10-23 05:56] LABS: C.DIFFICILE TOXIN B QL PCR NOT DETECTED (NOT DETECTED)
[2017-10-23 06:47] VITALS: BP 102/50
--- NOTE | 2017-10-23 07:12 | PN- Housestaff ---
Hal Walker 10/23/17 0711: Subjective Follow-up For: Diarrhea Subjective: Pt seen and examined this am. She states diarrhea is improving, only with one episode of loose stools. There is no abdominal pain or discomfort. She remains afebrile, no leukocytosis on today's CBC (23.1->4.6). She offers no other complains. VS continue to be stable, afebrile. Review of Systems Constitutional: Reports: see HPI. Objective Last 24 Hrs of Vital Signs/I&O Vital Signs Date Time Temp Pulse Resp B/P B/P Pulse O2 O2 Flow FiO2 Mean Ox Delivery Rate 10/23 1440 97.7 67 18 112/67 98 Room Air 10/23 1000 62 100/60 10/23 0647 97.8 61 18 102/50 97 Room Air Intake & Output 10/23 1600 10/23 0800 10/23 0000 Intake Total 360 720 725 Output Total Balance 360 720 725 Intake, IV 600 525 Intake, Oral 360 120 200 Number 2 Bowel Movements Physical Exam General Appearance: Alert, Oriented X3, Cooperative, No Acute Distress HEENT: Atraumatic Neck: Supple Cardiovascular: Regular Rate, Normal S1, Normal S2, No Murmurs Lungs: Clear to Auscultation, Normal Air Movement Abdomen: Normal Bowel Sounds, Soft, No Tenderness Extremities: No Edema Current Medications: Current Medications Sig/Shaq Start time Last Medication Dose Route Stop Time Status Admin Acetaminophen 650 MG Q6P PRN 10/22 0500 AC PO Atenolol 25 MG DAILY 10/22 09 AC 10/22 PO 0812 Budesonide 9 MG DAILY 10/23 1245 AC 10/23 PO 1459 Cholecalciferol 1,000 IU DAILY 10/22 09 AC 10/23 PO 0928 Heparin Sodium 5,000 UNIT Q8 10/22 06 AC 10/23 (Porcine) SC 1444 Levothyroxine Sodium 0.088 MG DAILY AC 10/22 07 AC 10/23 PO 0614 Melatonin 5 MG ONCE PRN 10/23 0330 AC 10/23 PO 033 Multivitamins 1 TAB DAILY 10/22 09 AC 10/23 PO 0928 Ondansetron HCl 4 MG Q6P PRN 10/22 06 AC IV Potassium Chloride 40 MEQ ONCE ONE 10/23 09 DC 10/23 PO 10/23 0901 0928 Sodium Chloride 1,000 ML Q13H 10/22 0500 DC 10/22 IV 10/23 0659 1840 Trazodone HCl 50 MG QPM 10/22 2100 AC 10/22 PO 2040 Last 24 Hrs of Lab/Anant Results Last 24 Hrs of Labs/Mics: Laboratory Tests 10/23/17 0628: Anion Gap 3 L, Estimated GFR > 60, BUN/Creatinine Ratio 12.0, CBC w Diff NO MAN DIFF REQ, RBC 3.40 L, MCV 94.5, MCH 32.3 H, MCHC 34.2, RDW 14.1, MPV 8.7, Gran % 47.2, Lymphocytes % 45.6, Monocytes % 4.8, Eosinophils % 2.0, Basophils % 0.4, Absolute Granulocytes 2.1, Absolute Lymphocytes 2.1, Absolute Monocytes 0.2, Absolute Eosinophils 0.1, Absolute Basophils 0 Assessment/Plan Assessment: Ms. Parra is a 82-year-old F with PMH significant for hypertension, insomnia, hypothyroidism, diarrhea requiring admission on 10/10 and collagenous colitis who presented to the emergency department with c/o nausea, vomiting, diarrhea since midnight. Pt states she was fine after discharge, with resolution of the symptoms that prompted her initial admission, advanced her diet as directed and followed up with her PCP on 10/21 with symptoms controlled. Yesterday night right after eating a cheeseburger, she developed N/V and diarrhea. On the ED she was given fluids, CT abdomen not showing evidence of colitis, but still c/o same symptoms. She was being followed by Dr. Huerta outpatient. She is admitted for management of these issues: ASSESSMENT: #Diarrhea/Vomiting #Leukocytosis #H/o collagenous collitis #H/o HTN/Hypothyroidism/Insomnia #Diarrhea/Vomiting, unclear etiology; viral gastreoenteritis vs collagenous colitis flare-up, vs c diff colitis. Of unclear etiology for the moment. She had a similar presentation on 10/10, with resolution of symptoms upon discharge. Last admission, her workup was negative for c-diff. We have sent stool cultures and c diff toxins. She has been getting fluids, symptoms are improving from momenet of admission. CT did not show evidence of colitis. GI was consulted. -C diff toxins, PCR negative. Shiga toxins negative. -f/u GI recommendations #Leukocytosis, resolving Leukocytosis of 23 with 10% bands on admission. No fevers documented or felt by the patient. No other source for leukocytosis seen rather than GI (No findings on UA). Likely reactionary as no inflammation was seen on CT abd. Now back to normal. No need for Abx at this time. Will continue to monitor. -Off abx -Trend WBC #H/o collagenous collitis. Present episode could indicate a flare-up. She was diagnosed in 2003 though never really received any treatment. 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 Huerta. As per GI's recommendation, we will start treatment with budesonide po. -Budesonide PO 9 mg qD #H/o HTN/Hypothyroidism/Insomnia HTN: BP has been normal. Will continue her antihypertensive home medications. Hypothyroidism: We will continue levothyroxine. Insomnia: We will continue trazodone. FULL CODE CLEAR LIQUID DIET, lactose free, to advance to REG DIET, lactose free DVT PPX Hep subq Problem List: 1. Diarrhea Pain Ratin Pain Location: n/a Pain Goal: Remain pain free Pain Plan: as per pathway Tomorrow's Labs & Rationales: cbc Len Maxwell MD 10/23/17 1702: Attending MD Review Statement Attending Statement Attending MD Statement: examined this patient, discuss w/resident/PA/EARLY CHILDHOOD DIRECTOR, agreed w/resident/PA/EARLY CHILDHOOD DIRECTOR, reviewed EMR data (avail), discussed with nursing, discussed with case mgmt, amended to note Attending Assessment/Plan: The patient was seen and discussed with house staff, nursing, and case management. Appreciate GI input- will advance diet and begin on budesonide for colitis. Observe response. Will need eventual full colonoscopy.
[2017-10-23 08:11] LABS: ABSOLUTE BASOPHIL COUNT 0 /CUMM (0.0-0.2); ABSOLUTE EOSINOPHIL COUNT 0.1 /CUMM (0.0-0.7); ABSOLUTE GRANULOCYTE CT 2.1 /CUMM (1.4-6.5); ABSOLUTE LYMPH COUNT 2.1 /CUMM (1.2-3.4); ABSOLUTE MONOCYTE COUNT 0.2 /CUMM (0.10-0.60); BASOPHIL % 0.4 % (0.0-2.0); GRANULOCYTE % 47.2 % (42.2-75.2); MEAN CORPUSCULAR HGB 32.3 PG (27.0-31.0); MEAN CORPUSCULAR HGB CONC 34.2 G/DL (33.0-37.0); MEAN CORPUSCULAR VOLUME 94.5 FL (81.0-99.0); MEAN PLATELET VOLUME 8.7 FL (7.4-10.4); PLATELET COUNT 199 /CUMM (130-400); RBC DISTRIBUTION WIDTH 14.1 % (11.5-14.5)
[2017-10-23 08:27] LABS: HEMATOCRIT 32.1 % (37-47); WHITE BLOOD CELL COUNT 4.6 /CUMM (4.8-10.8)
[2017-10-23 14:40] VITALS: BP 112/67
--- NOTE | 2017-10-23 16:26 | PN- Gastroenterology ---
Assessment/Plan GI Assessment/Recommendations: Recurrent/acute diarrhea with vomiting/painless. Leukocytosis resolved promptly. Underlying collagenous colitis, likely with exacerbation. Recommendations * Advance diet to full liquids, and then to solids/lactose-free. * We will defer endoscopic evaluation for now. Patient concurs. If symptoms continue, will consider full colonoscopy. * Begin budesonide 9 mg daily Subjective Subjective: Only 1 loose bowel movement. No nausea, vomiting, pain. Objective Vital Signs and I&Os Vital Signs Date Time Temp Pulse Resp B/P B/P Pulse O2 O2 Flow FiO2 Mean Ox Delivery Rate 10/23 1440 97.7 67 18 112/67 98 Room Air 10/23 1000 62 100/60 10/23 0647 97.8 61 18 102/50 97 Room Air Intake & Output 10/23 1600 10/23 0400 10/22 1600 10/22 0400 10/21 1600 10/21 0400 Intake Total 7410 496 2102 Output Total 250 Balance 9903 775 3609 Intake, IV 687 112 6186 Intake, Oral 480 200 300 Number 2 6 Bowel Movements Output, Urine 250 Patient 123 lb 123 lb Weight Weight Reported by Patient Measurement Method Physical Exam: Alert and oriented. Sclera anicteric. No adenopathy. Skin normal. Abdomen soft, nondistended, nontender. No edema. Current Medications: Current Medications Sig/Shaq Start time Last Medication Dose Route Stop Time Status Admin Acetaminophen 650 MG Q6P PRN 10/22 0500 AC PO Atenolol 25 MG DAILY 10/22 09 AC 10/22 PO 0812 Budesonide 9 MG DAILY 10/23 1245 AC 10/23 PO 1459 Cholecalciferol 1,000 IU DAILY 10/22 899 AC 10/23 PO 0928 Heparin Sodium 5,000 UNIT Q8 10/22 06 AC 10/23 (Porcine) SC 1444 Levothyroxine Sodium 0.088 MG DAILY AC 10/22 07 AC 10/23 PO 0614 Melatonin 5 MG ONCE PRN 10/23 0330 AC 10/23 PO 0337 Multivitamins 1 TAB DAILY 10/22 09 AC 10/23 PO 0928 Ondansetron HCl 4 MG Q6P PRN 10/22 06 AC IV Potassium Chloride 40 MEQ ONCE ONE 10/23 09 DC 10/23 PO 10/23 0901 0928 Sodium Chloride 1,000 ML Q13H 10/22 0500 DC 10/22 IV 10/23 0659 1840 Trazodone HCl 50 MG QPM 10/22 2100 AC 10/22 PO 2040 Results Pertinent Lab Results: Laboratory Tests 10/23 10/22 0628 0550 Chemistry Sodium (137 - 145 mmol/L) 138 Potassium (3.5 - 5.1 mmol/L) 3.4 L Chloride (98 - 107 mmol/L) 110 H Carbon Dioxide (22 - 30 mmol/L) 24 Anion Gap (5 - 16) 3 L BUN (7 - 17 mg/dL) 6 L Creatinine (0.5 - 1.0 mg/dL) 0.5 Estimated GFR (>60 ml/min) > 60 BUN/Creatinine Ratio (7 - 25 %) 12.0 Lactic Acid Cancelled Hematology CBC w Diff NO MAN DIFF REQ WBC (4.8 - 10.8 /CUMM) 4.6 L RBC (4.20 - 5.40 /CUMM) 3.40 L Hgb (12.0 - 16.0 G/DL) 11.0 L Hct (37 - 47 %) 32.1 L MCV (81.0 - 99.0 FL) 94.5 MCH (27.0 - 31.0 PG) 32.3 H MCHC (33.0 - 37.0 G/DL) 34.2 RDW (11.5 - 14.5 %) 14.1 Plt Count (130 - 400 /CUMM) 199 MPV (7.4 - 10.4 FL) 8.7 Gran % (42.2 - 75.2 %) 47.2 Lymphocytes % (20.5 - 51.1 %) 45.6 Monocytes % (1.7 - 9.3 %) 4.8 Eosinophils % (0 - 5 %) 2.0 Basophils % (0.0 - 2.0 %) 0.4 Absolute Granulocytes (1.4 - 6.5 /CUMM) 2.1 Absolute Lymphocytes (1.2 - 3.4 /CUMM) 2.1 Absolute Monocytes (0.10 - 0.60 /CUMM) 0.2 Absolute Eosinophils (0.0 - 0.7 /CUMM) 0.1 Absolute Basophils (0.0 - 0.2 /CUMM) 0 10/22 10/22 0459 0417 Serology C. difficile Tox B Gene (NOT DETECTED) NOT DETECTED Urines Urine Color (YEL,AMB,STR) YEL Urine Clarity (CLEAR) CLEAR Urine pH (5.0 - 8.0) 6.0 Ur Specific [place] (1.001 - 1.035) 1.010 Urine Protein (NEG,<30 MG/DL) NEG Urine Ketones (NEG) NEG Urine Nitrite (NEG) NEG Urine Bilirubin (NEG) NEG Urine Urobilinogen (0.1 - 1.0 EU/dl) 0.2 Ur Leukocyte Esterase (NEG) NEG Ur Microscopic EXAM NOT REQUIRED Urine Hemoglobin (NEG) NEG Urine Glucose (N MG/DL) >=1000 H 10/22 0333 Chemistry Sodium (137 - 145 mmol/L) 136 L Potassium (3.5 - 5.1 mmol/L) 3.9 Chloride (98 - 107 mmol/L) 100 Carbon Dioxide (22 - 30 mmol/L) 29 Anion Gap (5 - 16) 7 BUN (7 - 17 mg/dL) 19 H Creatinine (0.5 - 1.0 mg/dL) 0.7 Estimated GFR (>60 ml/min) > 60 BUN/Creatinine Ratio (7 - 25 %) 27.1 H Glucose (65 - 99 mg/dL) 114 H Lactic Acid (0.7 - 2.1 mmol/L) 1.3 Calcium (8.4 - 10.2 mg/dL) 10.4 H Total Bilirubin (0.2 - 1.3 mg/dL) 0.6 Direct Bilirubin (< 0.4 mg/dL) 0.1 AST (14 - 36 U/L) 25 ALT (9 - 52 U/L) 39 Alkaline Phosphatase (<127 U/L) 70 Troponin I (< 0.11 ng/ml) < 0.01 Total Protein (6.3 - 8.2 g/dL) 7.4 Albumin (3.5 - 5.0 g/dL) 4.1 Amylase (30 - 110 U/L) 71 Lipase (23 - 300 U/L) 228 Hematology CBC w Diff MAN DIFF ORDERED WBC (4.8 - 10.8 /CUMM) 23.1 H RBC (4.20 - 5.40 /CUMM) 4.49 Hgb (12.0 - 16.0 G/DL) 14.3 Hct (37 - 47 %) 43.0 MCV (81.0 - 99.0 FL) 95.8 MCH (27.0 - 31.0 PG) 31.9 H MCHC (33.0 - 37.0 G/DL) 33.3 RDW (11.5 - 14.5 %) 14.2 Plt Count (130 - 400 /CUMM) 297 MPV (7.4 - 10.4 FL) 8.0 Gran % (42.2 - 75.2 %) 90.6 H Lymphocytes % (20.5 - 51.1 %) 6.8 L Monocytes % (1.7 - 9.3 %) 2.1 Eosinophils % (0 - 5 %) 0.5 Basophils % (0.0 - 2.0 %) 0 Absolute Granulocytes (1.4 - 6.5 /CUMM) 20.9 H Segmented Neutrophils (42.2 - 75.2 %) 80 H Band Neutrophils (0.0 - 5.0 %) 10 H Absolute Lymphocytes (1.2 - 3.4 /CUMM) 1.6 Lymphocytes (20.5 - 51.1 %) 7 L Monocytes (1.7 - 9.3 %) 1 L Absolute Monocytes (0.10 - 0.60 /CUMM) 0.5 Eosinophils (0 - 5.0 %) 2 Absolute Eosinophils (0.0 - 0.7 /CUMM) 0.1 Absolute Basophils (0.0 - 0.2 /CUMM) 0 Platelet Estimate (ADEQUATE) ADEQUATE Normocytic RBCs VERIFIED Normochromic RBCs VERIFIED Imaging/Other Studies: Stool negative culture, C. difficile toxin.
--- NOTE | 2017-10-23 22:00 | Event Note ---
Event Note Event Note: Ms Parra has been very anxious overnight daily. She is upset that she cannot sleep, she has been requesting additional trazodone dosage, me alongwith my nutrition internship and nursing staff yefri talked to her and counselled her at length Gave her multiple reassurances that we also want to try our best to help her sleep. We gave her some melatonin on 10/22/2017 in addition to trazodone after which she slept and didnot have any complaints. Today 10/23/2017 - she is upset again and is very anxious and has insomnia, is requesting for additional trazodone. We talked with her at length again, gave her additional lower dose trazodone, as she would not want to take melatonin. She is requesting for psych consult. Will sign out to am team.
[2017-10-23 22:06] VITALS: BP 116/64
[2017-10-24 06:36] VITALS: BP 110/60
--- NOTE | 2017-10-24 06:40 | PN- Housestaff ---
Hal Walker 10/24/17 0639: Subjective Follow-up For: Diarrhea Subjective: Pt seen and examined this am. She reports no BM since yesterday. She has tolerated her diet well, advanced from full liquid to regular lactose free. She is "taking it slow". Continus to be afebrile. Breathing comfortably on room air. Extensive, lengthy talk had with patient about the state of her care and the perception of the care she's getting. She does note difficulty sleeping overnight that resolved upon a dose of trazodone. Review of Systems Constitutional: Reports: see HPI. Objective Last 24 Hrs of Vital Signs/I&O Vital Signs Date Time Temp Pulse Resp B/P B/P Pulse O2 O2 Flow FiO2 Mean Ox Delivery Rate 10/24 08 74 118/66 10/24 0636 98.3 61 18 110/60 98 Room Air 10/23 2206 97.6 66 18 116/64 97 Room Air 10/23 1440 97.7 67 18 112/67 98 Room Air Intake & Output 10/24 1600 10/24 0800 10/24 0000 Intake Total 120 120 Output Total Balance 120 120 Intake, Oral 120 120 Number 1 Bowel Movements Patient 125 lb Weight Weight Bed scale Measurement Method Physical Exam General Appearance: Alert, Oriented X3, Cooperative, No Acute Distress HEENT: Atraumatic, EOMI Neck: Supple Cardiovascular: Regular Rate, Normal S1, Normal S2, No Murmurs Lungs: Clear to Auscultation, Normal Air Movement Abdomen: Normal Bowel Sounds, Soft, No Tenderness Current Medications: Current Medications Sig/Shaq Start time Last Medication Dose Route Stop Time Status Admin Acetaminophen 650 MG Q6P PRN 10/22 0500 AC PO Atenolol 25 MG DAILY 10/22 0900 AC 10/24 PO 0823 Budesonide 9 MG DAILY 10/23 1245 AC 10/24 PO 0820 Cholecalciferol 1,000 IU DAILY 10/22 09 AC 10/24 PO 08 Diphenhydramine HCl 25 MG AT BEDTIME PRN 10/23 2044 AC PO Heparin Sodium 5,000 UNIT Q8 10/22 06 AC 10/24 (Porcine) SC 0622 Levothyroxine Sodium 0.088 MG DAILY AC 10/22 07 AC 10/24 PO 0622 Melatonin 5 MG AT BEDTIME PRN 10/23 2044 AC PO Melatonin 5 MG ONCE PRN 10/23 0330 DC 10/23 PO 0337 Multivitamins 1 TAB DAILY 10/22 0900 AC 10/24 PO 0820 Ondansetron HCl 4 MG Q6P PRN 10/22 0600 AC IV Oxycodone/ 0 .STK-MED ONE 10/23 2050 DC Acetaminophen PO Trazodone HCl 12.5 MG ONCE ONE 10/23 2114 DC 10/24 PO 10/24 2115 0415 Trazodone HCl 50 MG QPM 10/22 2099 AC 10/23 PO 2208 Last 24 Hrs of Lab/Anant Results Last 24 Hrs of Labs/Mics: Laboratory Tests 10/24/17 0654: Anion Gap 7, Estimated GFR > 60, BUN/Creatinine Ratio 14.0, CBC w Diff NO MAN DIFF REQ, RBC 3.51 L, MCV 95.4, MCH 32.1 H, MCHC 33.6, RDW 14.3, MPV 8.6, Gran % 59.2, Lymphocytes % 35.6, Monocytes % 3.9, Eosinophils % 1.2, Basophils % 0.1, Absolute Granulocytes 3.2, Absolute Lymphocytes 1.9, Absolute Monocytes 0.2, Absolute Eosinophils 0.1, Absolute Basophils 0 Assessment/Plan Assessment: Ms. Parra is a 82-year-old F with PMH significant for hypertension, insomnia, hypothyroidism, diarrhea requiring admission on 10/10 and collagenous colitis who presented to the emergency department with c/o nausea, vomiting, diarrhea since midnight. Pt states she was fine after discharge, with resolution of the symptoms that prompted her initial admission, advanced her diet as directed and followed up with her PCP on 10/21 with symptoms controlled. Yesterday night right after eating a cheeseburger, she developed N/V and diarrhea. On the ED she was given fluids, CT abdomen not showing evidence of colitis, but still c/o same symptoms. She was being followed by Dr. Huerta outpatient. She is admitted for management of these issues: ASSESSMENT: #Diarrhea/Vomiting #Leukocytosis #H/o collagenous collitis #H/o HTN/Hypothyroidism/Insomnia #Diarrhea/Vomiting, likely 2/2 flare up of collagenous collitis Likely due to a flare up of collagenous collitis. She had a similar presentation on 10/10, with resolution of symptoms upon discharge. Last admission, her workup was negative for c-diff. We have sent stool cultures and c diff toxins. Pt's loose BM are almost resolved. Negative stool culture and c diff. CT did not show evidence of colitis. GI was consulted, she was started on budesonide 9 mg. -C diff toxins, PCR negative. Shiga toxins negative. -f/u GI recommendations #Leukocytosis, resolving Leukocytosis of 23 with 10% bands on admission. No fevers documented or felt by the patient. No other source for leukocytosis seen rather than GI (No findings on UA). Likely reactionary as no inflammation was seen on CT abd. Latest 5.4 in the am. No need for Abx at this time. -Off abx #H/o collagenous collitis. Present episode likely indicates a flare-up. She was diagnosed in 2003 though never really received any treatment. 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 Huerta. As per GI's recommendation, we will start treatment with budesonide po. She is stable for discharge. -Budesonide PO 9 mg qD #H/o HTN/Hypothyroidism/Insomnia HTN: BP has been normal. Will continue her antihypertensive home medications. Hypothyroidism: We will continue levothyroxine. Insomnia: We will continue trazodone. FULL CODE Reg diet, lactose free DVT PPX Hep subq Problem List: 1. Diarrhea 2. Collagenous colitis Pain Ratin Pain Location: -n/a Pain Goal: Remain pain free Pain Plan: as per pathway Tomorrow's Labs & Rationales: n/a Len Maxwell MD 10/24/172057: Attending MD Review Statement Attending Statement Attending MD Statement: examined this patient, discuss w/resident/PA/SKATESMAN, agreed w/resident/PA/SKATESMAN, reviewed EMR data (avail), discussed with nursing, discussed with case mgmt, amended to note Attending Assessment/Plan: The patient was seen and discussed with house staff. GI symptoms have resolved. The patient is currently on Budesonide daily and is tolerating solid diet. Will discharge to home today with follow-up with Dr. Huerta for full colonoscopy as OP. The patient also wishes some evaluation of anxiety and will refer to psychiatry as outpatient.
[2017-10-24 07:57] LABS: ABSOLUTE BASOPHIL COUNT 0 /CUMM (0.0-0.2); ABSOLUTE EOSINOPHIL COUNT 0.1 /CUMM (0.0-0.7); ABSOLUTE GRANULOCYTE CT 3.2 /CUMM (1.4-6.5); ABSOLUTE LYMPH COUNT 1.9 /CUMM (1.2-3.4); ABSOLUTE MONOCYTE COUNT 0.2 /CUMM (0.10-0.60); BASOPHIL % 0.1 % (0.0-2.0); EOSINOPHIL % 1.2 % (0-5); GRANULOCYTE % 59.2 % (42.2-75.2); HEMATOCRIT 33.4 % (37-47); MEAN CORPUSCULAR HGB 32.1 PG (27.0-31.0); MEAN CORPUSCULAR HGB CONC 33.6 G/DL (33.0-37.0); MEAN CORPUSCULAR VOLUME 95.4 FL (81.0-99.0); MEAN PLATELET VOLUME 8.6 FL (7.4-10.4); PLATELET COUNT 212 /CUMM (130-400); RBC DISTRIBUTION WIDTH 14.3 % (11.5-14.5); RED BLOOD CELL CT 3.51 /CUMM (4.20-5.40); WHITE BLOOD CELL COUNT 5.4 /CUMM (4.8-10.8)
[2017-10-24 08:23] VITALS: BP 118/66
[2017-10-24] MEDS ORDERED: ENTOCORT EC3 M1 PO ×3 (11:41→16:53)
--- NOTE | 2017-10-24 11:42 | Patient Discharge Instructions ---
Discharge Instructions General Discharge Information You were seen/treated for: Diarrhea, collagenous collitis You had these procedures: CT ABDOMEN Special Instructions: Please follow up with your PCP within 1 week of discharge. Please follow up with GI within 2 weeks of discharge. You will likely need a colonoscopy. Acute Coronary Syndrome Inclusion Criteria At DC or during hospital stay patient has or had the following: ACS DIAGNOSIS No Discharge Core Measures Meds if any: Prescribed or Continued at Discharge Meds if any: NOT Prescribed or Continued at Discharge Congestive Heart Failure Inclusion Criteria At DC or during hospital stay patient has or had the following: CHF DIAGNOSIS No Discharge Core Measures Meds if any: Prescribed or Continued at Discharge Meds if any: NOT Prescribed or Continued at Discharge Cerebrovascular accident Inclusion Criteria At DC or during hospital stay patient has or had the following: CVA/TIA Diagnosis No Discharge Core Measures Meds if any: Prescribed or Continued at Discharge Meds if any: NOT Prescribed or Continued at Discharge Venous thromboembolism Inclusion Criteria VTE Diagnosis No VTE Type NONE VTE Confirmed by (Test) NONE Discharge Core Measures - Per Current guidelines, there needs to be overlap - treatment for the first 5 days of Warfarin therapy. - If discharged on Warfarin prior to 5 days of - overlap therapy, the patient will need to be - assessed for post discharge needs including - *Post discharge parental anticoagulation - *Warfarin and/or parental anticoagulation education - *Follow up date to check INR post discharge At least 5 days overlap therapy as Inpatient No Meds if any: Prescribed or Continued at Discharge Note: Overlap Therapy is Warfarin and Anticoagulant Meds if any: NOT Prescribed or Continued at Discharge
--- NOTE | 2017-10-24 11:50 | Discharge Summary ---
Visit Information Visit Dates Admission Date: 10/22/17 Discharge Date: 10/24/2017 Hospital Course Course Attending Physician: Len Maxwell MD Primary Care Physician: Kaela Mcqueen MD Hospital Course: Ms. Parra is a 82-year-old F with PMH significant for hypertension, insomnia, hypothyroidism, diarrhea requiring admission on 10/10 and collagenous colitis who presented to the emergency department with c/o nausea, vomiting, diarrhea. Pt states she was fine after first discharge, with resolution of the symptoms that prompted her initial admission, advanced her diet as directed and followed up with her PCP on 10/21 with symptoms controlled. On the night of 10/22 right after eating a cheeseburger, she developed N/V and diarrhea. On the ED she was given fluids, CT abdomen not showing evidence of colitis, but still c/o same symptoms. She was being followed by Dr. Huerta outpatient. She is seen for management of these issues: ASSESSMENT: #Diarrhea/Vomiting #Leukocytosis #H/o collagenous collitis #H/o HTN/Hypothyroidism/Insomnia #Diarrhea/Vomiting, likely 2/2 flare up of collagenous collitis Likely due to a flare up of collagenous collitis. She had a similar presentation on 10/10, with resolution of symptoms upon discharge. Last admission, her workup was negative for c-diff. This time, stool cultures, c diff and shiga toxins were also negative. Pt's loose BM are now resolved. CT did not show evidence of colitis. GI was consulted, she was started on budesonide 9 mg. Sigmoidoscopy/ Colonoscopy will be done as an outpatient. #Leukocytosis, resolved Leukocytosis of 23 with 10% bands on admission. No fevers documented or felt by the patient. No other source for leukocytosis seen rather than GI (No findings on UA). Likely reactionary as no inflammation was seen on CT abd. Latest 5.4 in the am. She was watched off antibiotics. #H/o collagenous collitis. Present episode likely indicates a flare-up. She was diagnosed in 2003 though never really received any treatment. 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 Huerta. As per GI's recommendation, we will start treatment with budesonide po. She is stable for discharge with the instruction to follow up with GI for a possible colonoscopy in the future. #H/o HTN/Hypothyroidism/Insomnia HTN: BP remained normal during admission, she was continued on her home antihypertensive medications. Hypothyroidism: She was continued on her home levothyroxine dose. Insomnia: She was continued on her trazodone dose. On resolution of her symptoms, and no plans to do more inpatient follow up, patient was discharged with the instructions to follow up with her PCP within 1 week; GI within 2 weeks, and to see psych for her heightened anxiety due to her medical condition to establish care. Patient was FULL CODE On a Reg diet, lactose free She received DVT PPX in the form of Hep subq Allergies: Coded Allergies: oxycodone (INTENSE SCRATCHING 11/13/16) tramadol (From ULTRAM) (INTENSE SCRATCHING 11/13/16) Significant Procedures: SERVICE DATE: 10/22/17 EXAM TYPE: CAT - CT ABD & PELVIS W/O IV CONTRAS EXAMINATION: CT ABDOMEN AND PELVIS WITHOUT CONTRAST CLINICAL INFORMATION: Severe diarrhea COMPARISON: 09/30/2017 TECHNIQUE: Multidetector volumetric imaging was performed from the superior aspect of the liver through the pubic symphysis. Sagittal and coronal reformatted images were obtained on the technologist's workstation. DLP: 235.97 mGy-cm FINDINGS: LUNG BASES: The visualized lung bases demonstrate minimal atelectasis. Stable right middle and lower lobe lung nodules. LIVER, GALLBLADDER, AND BILIARY TREE: The liver is normal in size, shape, and attenuation. No biliary ductal dilatation is present. The gallbladder is unremarkable with no evidence of radiopaque gallstones, gallbladder wall thickening, or obvious pericholecystic inflammatory changes. PANCREAS: Unremarkable. SPLEEN: Unremarkable. ADRENAL GLANDS: Unremarkable. KIDNEYS AND URETERS: The kidneys are normal in size, shape, and attenuation. Redemonstrated left upper pole renal cyst. No hydronephrosis, hydroureter, or calculi seen. No perinephric stranding. BLADDER: Unremarkable. GASTROINTESTINAL TRACT: There is mild colonic diverticulosis. Fluid is present throughout the colon, a finding which can be associated with diarrhea. No significant colonic wall thickening or pericolic inflammation is identified to suggest a colitis. No specific evidence of bowel obstruction. No free fluid or free air is seen. ABDOMINAL WALL: No significant hernia is appreciated. LYMPH NODES: No lymphadenopathy is seen, though assessment is limited in the absence of intravenous contrast. VASCULAR: There is atherosclerotic calcification along the aorta. PELVIC VISCERA: Not adequately assessed due to streak artifact from bilateral hip arthroplasties. OSSEOUS STRUCTURES: Bilateral hip arthroplasty hardware is partially visualized. There are healed fractures of the bilateral superior and inferior pubic rami. Redemonstrated compression deformities of L1 and L5. Redemonstrated grade 1 retrolisthesis of L2 on L3. IMPRESSION: 1. Fluid throughout the colon, a finding which can be associated with diarrhea. No evidence of colitis. 2. Chronic findings as described above. DICTATED BY: Cam Bynum MD DATE/TIME DICTATED:10/22/17337 WELDER ASSEMBLER:CHUCKY DATE/TIME TRANSCRIBED:10/22/17337 CONFIDENTIAL, DO NOT COPY WITHOUT APPROPRIATE AUTHORIZATION. Patient : TREVON PARRA Acct: [id number] DR: Len Maxwell MD Birthdate: [birth year] Age/Sex: 82/F Unit: [id number] Loc: 1NO 183- 01 Status : DIS Karin SPEC #: [id number] CHANDRIKA: 10/22/17 STATUS: RES RECD: 10/22/[address]: Jenna RIBEIRO, Matt Tsang SOURCE: STOOL ENTR: 10/22/[address]: Richar RIBEIRO,Kaela Slaughter SPDESC: ORDERED: STOOL CULTURE, C.DIFFICILE EIA COMMENT: Has pt had antimicrobial/antineoplastic rx in past 4-6wks? Y Has pt had abd pain, fever, or constipation? Y Procedure Result > STOOL CULTURE Preliminary 10/24/17 Mixed lm after 2 days > C. DIFFICILE TOXIN A & B EIA Final 10/22/17 NEGATIVE FOR CLOSTRIDIUM DIFFICILE TOXINS A & B BY EIA > SHIGA TOXIN 1 AKA EHEC Final 10/23/17 NEGATIVE; NOT DETECTED. > SHIGA TOXIN 2 AKA EHEC Final 10/23/17 NEGATIVE; NOT DETECTED. Disposition Summary Disposition Principal Diagnosis: Flare of Collagenous collitis Additional Diagnosis: Diarrhea Discharge Disposition: home or self care Discharge Instructions General Discharge Information Code Status: Full Code Patient's Diet: Regular diet, lactose free. Patient's Activity: As tolerated. Follow-Up Instructions/Appts: Please follow up with your PCP within 1 week of discharge to discuss this recent hospital admission. Please follow up with GI for further management within 2 weeks of discharge. Please follow up with Psychiatry to establish care. Medications at Discharge Discharge Medications: Continue taking these medications: Levothyroxine Sodium (Levothyroxine Sodium) 88 MCG TABLET 1 Tablet ORAL DAILY Qty = 90 Comments: Last Taken: 10/24 Time: 630A Atenolol (Atenolol) 25 MG TABLET 1 Tablet ORAL DAILY Qty = 90 Comments: Last Taken: 10/24 Time: 830A Multivitamin-Min/Iron/FA/Vit K (Multi-Day Plus Minerals Tablet) 18 MG IRON-400 MCG-25 MCG TABLET 1 Tablet ORAL DAILY Comments: Last Taken: 10/24 Time: 830AM Cholecalciferol (Vitamin D3) (Vitamin D3) 2,000 UNIT TABLET 1 Tablet ORAL DAILY Comments: Last Taken: 10/24 Time: 830AM Trazodone HCl (Trazodone HCl) 50 MG TABLET 1 Tablet ORAL Every night Qty = 90 Comments: Last Taken: 10/23 Time: 10P Loperamide HCl (Imodium A-D) 2 MG TABLET 1 Tablet ORAL DAILY as needed for GI Comments: Last Taken:NOT GIVEN IN HOSPITAL Time: Ipratropium Shade (Ipratropium Shade) 42 MCG (0.06 %) SPRAY 2 [place] In the nose TWICE DAILY Qty = 15 Comments: Last Taken:NOT GIVEN IN HOSPITAL Time: Bismuth Subsalicylate (Pepto-Bismol) 262 MG TABLET 1 Tablet ORAL DAILY as needed for GI Comments: Last Taken:NOT GIVEN IN HOSPITAL Time: Start taking the following new medications: Budesonide (Entocort EC) 3 MG CAPDR...ER 9 Milligram ORAL DAILY Qty = 90 Refills = 1 Instructions: Take 3 tab daily. Comments: Last Taken: 10/24 Time: 830A Copies To: Richar RIBEIRO,Kaela Slaughter Attending MD Review Statement Documenting Attending: Len Maxwell MD Other Findings: Agree with the above summary of care and plan of care. To have OP colonoscopy with Dr. Huerta and will continue Budesonide daily.
== END 2017-10-24 15:12 ==
LOC: ERH 02:09 → ERHI 04:28 → 1NO 04:28 → ENRESERV 12:37 → ENTRNSPT 13:45 → 1NO 13:49 → EDTRNSPTSTS 13:53 → 1NO 14:04 → CMPTRNSPT 14:04 → 1NO 17:40 → ENTRNSPT 10-24 14:58 → EDTRNSPTSTS 10-24 15:00 → EDTRNSPT 10-24 15:00 → 1NO 10-24 15:12 → CMPTRNSPT 10-24 15:30
PROVIDERS: Hospitalist; Pediatrics; Student in an Organized Health Care Education/Training Program
DX: K52.831 Collagenous colitis (principal); R11.2 Nausea with vomiting, unspecified; I10 Essential (primary) hypertension; G47.00 Insomnia, unspecified; E03.9 Hypothyroidism, unspecified; D72.829 Elevated white blood cell count, unspecified; R19.7 Diarrhea, unspecified
CPT/HCPCS: 87493; 36592; 74176; 81003; 82436; 87015; 87045; 87899; 87899-59; 93005; 93010; 96360; 96372; 97116-GP; 97161-GP; G0378; J1644